=== PATIENT | male | born 1940 | race Caucasian/White ===

== ENCOUNTER → 2016-10-02 | Outpatient (CLI) | payer MEDICARE, BC ==
[2016-10-02 17:59] LABS: Blood Urea Nitrogen 23 mg/dL (9-20); Non-African American GFR(MDRD) >60 (>60 ml/min/1.73 sqM)
--- NOTE | 2016-10-02 20:30 | CT ---
EXAMINATION TYPE: CT abdomen pelvis w con DATE OF EXAM: 10/02/2016 COMPARISON: NONE HISTORY: Generalized pain for [address] DLP: 891.2 mGycm Automated exposure control for dose reduction was used. TECHNIQUE: Helical acquisition of images was performed from the lung bases through the pelvis. CONTRAST: Performed with Oral Contrast and with IV Contrast, patient injected with 100 mL of Omnipaque 300. FINDINGS: Lung bases are clear. There is no pleural effusion. There are clips from cholecystectomy. Liver spleen pancreas appear normal. Bile ducts are not dilated . There is no adrenal mass. Kidneys show satisfactory contrast opacification. There is a 1.5 cm cortica l cyst in the posterior inferior right kidney. There is a 2 cm cortical cyst on the upper pole right kidney. There is no retroperitoneal adenopathy. Abdominal aorta is atheromatous. Appendix appears nor mal. There is no ascites. Bladder distends smoothly. I see no intestinal wall thickening. There are no dil ated loops. There is multilevel spondylosis in the lumbar spine. IMPRESSION: ATHEROMATOUS AORTA. RIGHT RENAL CORTICAL CYSTS. NORMAL APPENDIX. NO SIGN OF ACUTE ABDOMEN AND PELVIS.
== END | disposition home or self-care (01) ==
LOC: RADCTMAIN 17:23
PROVIDERS: ATTEND Family Medicine
DX: N28.1 Cyst of kidney, acquired (principal)
CPT/HCPCS: 82565; 84520; 74177; 36415; Q9967

== ENCOUNTER → 2017-06-05 | Outpatient (CLI) | payer MEDICARE, BC ==
[2017-06-05 11:10] LABS: Basophils # (A) 0.1 k/uL (0-0.2); Basophils % (A) 1 %; Eosinophils # (A) 0.2 k/uL (0-0.7); Eosinophils % (A) 3 %; HCT 45.3 % (39.0-53.0); HGB 14.6 gm/dL (13.0-17.5); Lymphocytes # (A) 2.1 k/uL (1.0-4.8); Lymphocytes % (A) 28 %; MCH 27.1 pg (25.0-35.0); MCHC 32.3 g/dL (31.0-37.0); Mean Platelet Volume 6.7; Monocytes # (A) 0.5 k/uL (0-1.0); Monocytes % (A) 7 %; Neutrophils # (A) 4.4 k/uL (1.3-7.7); Neutrophils % (A) 59 %; Platelet Count 333 k/uL (150-450); RBC 5.39 m/uL (4.30-5.90); RDW 14.4 % (11.5-15.5); WBC 7.5 k/uL (3.8-10.6)
[2017-06-05 11:34] LABS: Albumin 4.4 g/dL (3.5-5.0); Calcium 9.9 mg/dL (8.4-10.2); Potassium 5.3 mmol/L (3.5-5.1); Total Bilirubin 0.5 mg/dL (0.2-1.3); Total Protein 7.3 g/dL (6.3-8.2)
[2017-06-05 15:08] LABS: Partial Thromboplastin Time 22.6 sec (22.0-30.0); Prothrombin Time 9.8 sec (9.0-12.0)
== END | disposition home or self-care (01) ==
LOC: LABWHC1 09:59
PROVIDERS: ATTEND Family Medicine
DX: E78.5 Hyperlipidemia, unspecified (principal); E11.9 Type 2 diabetes mellitus without complications; D68.9 Coagulation defect, unspecified
CPT/HCPCS: 36415; 80053; 80061; 83090; 85025; 85303; 85306; 85610; 85730

== ENCOUNTER 2017-06-29 06:43 | Day surgery (SDC) | payer MEDICARE, BC ==
[2017-06-27 14:02] VITALS: BMI 26.2
[~2017-06-29 06:43] MED LIST: LACTATED RINGERS 1,000 ML IV SCH
[2017-06-29 07:13] VITALS: TEMP 97.8
[2017-06-29] MEDS ORDERED: LACTATED RINGERS 1,000 ML IV ONE ×2 (07:20)
[2017-06-29 07:23] LABS: Glucose,Whole Blood 116 mg/dL (75-99)
[2017-06-29] MEDS ORDERED: PROPOFOL 10 MG/ML 20 ML VIAL IV ONE (07:48)
[2017-06-29] MEDS ORDERED: MIDAZOLAM 2 MG/2 ML VIAL ONE (07:48)
[2017-06-29] MEDS ORDERED: fentaNYL (PF) 50 MCG/ML 2 ML AMP ONE (07:48)
--- NOTE | 2017-06-29 07:55 | P.GSHP ---
History of Present Illness H&P Date: 06/29/17 Chief Complaint: Screening colonoscopy This is a 76-year-old male who presents today for screening colonoscopy. He denies a significant GI complaints. Past Medical History Past Medical History: Cancer, Diabetes Mellitus, Eye Disorder, Hyperlipidemia, Hypertension Additional Past Medical History / Comment(s): GLAUCOMA,. PROSTATE CANCER History of Any Multi-Drug Resistant Organisms: None Reported Past Surgical History: Cholecystectomy, Heart Catheterization, Hernia Repair, Prostate Surgery Additional Past Surgical History / Comment(s): COLONOSCOPY. LT CAROTID SX. VASECTOMY Past Anesthesia/Blood Transfusion Reactions: Postoperative Nausea & Vomiting ( PONV) Smoking Status: Former smoker - Past Family History Mother Family Medical History: Cancer Brother(s) Family Medical History: Cancer Sister(s) Family Medical History: Cancer Medications and Allergies Home Medications Medication Instructions Recorded Confirmed Type Aspirin EC [Ecotrin Low Dose] 81 mg PO DAILY 06/27/17 06/27/17 History Atenolol [Atenolol] 25 mg PO DAILY 06/27/17 06/27/17 History Brimonidine Tartrate [Alphagan P 1 drops BOTH EYES BID 06/27/17 06/27/17 History 0.2% Ophth Soln] C,E,Zinc,Copper 11/Isqxi4v/Lut 1 each PO DAILY 06/27/17 06/27/17 History [Ocuvite Adult 50 Plus Softgel] Ezetimibe [Zetia] 1 each PO DAILY 06/27/17 06/27/17 History Flaxseed Oil [[place]-3 Flaxseed Oil] 1,000 mg PO DAILY 06/27/17 06/27/17 History Glucosamine Sulfate 1 tab PO DAILY 06/27/17 06/27/17 History Multivitamins, Thera [Multivitamin 1 each PO DAILY 06/27/17 06/27/17 History (formulary)] Ramipril [Ramipril] 2.5 mg PO DAILY 06/27/17 06/27/17 History Tumeric 1 tab PO DAILY 06/27/17 History Vitamin E (Dl,Tocopheryl Acet) 400 unit PO DAILY 06/27/17 06/27/17 History [Vitamin E] glipiZIDE XL [Glucotrol Xl] 10 mg PO DAILY 06/27/17 06/27/17 History Allergies Allergy/AdvReac Type Severity Reaction Status Date / Time Hqoziwj-Ncs-Lcn Reductase AdvReac SEVERE Verified 06/27/17 13:49 Inhibitor MUSCLE CRAMPS Surgical - Exam Vital Signs Temp Pulse Resp BP Pulse Ox 97.8 F 60 18 188/65 97 06/29/17 07:12 06/29/17 07:12 06/29/17 07:12 06/29/17 07:12 06/29/17 07:12 - General well developed, no distress - Eyes PERRL - ENT normal pinna - Neck no masses - Respiratory normal expansion - Cardiovascular Rhythm: regular - Abdomen Abdomen: soft, non tender Results - Labs Abnormal Lab Results - Last 24 Hours (Table) 06/29/17 Range/Units 07:18 POC Glucose (mg/dL) 116 H (75-99) mg/dL Assessment and Plan Assessment: We will perform screening colonoscopy.
--- NOTE | 2017-06-29 08:07 | P.OP ---
Date of Procedure: 06/29/17 Preoperative Diagnosis: Screening colonoscopy Postoperative Diagnosis: Normal colonoscopy Procedure(s) Performed: Colonoscopy Anesthesia: MAC Surgeon: Jaylen Zuniga Pathology: none sent Condition: stable Disposition: PACU Description of Procedure: PROCEDURE: The patient was placed on the endoscopy table in the lateral position. Digital rectal examination was performed which revealed no abnormalities. The prostate was symmetrical without nodules. Flexible colonoscope was then placed in the patient's anus and passed throughout the entire colon. The ileocecal valve was visualized. The cecum, ascending, transverse, descending and sigmoid colon were normal. The rectum was normal as well. There were no masses, polyps or diverticula noted in the entire colon. SUMMARY OF FINDINGS: Normal colonoscopy.
[2017-06-29 08:15] VITALS: RESP 16
[2017-06-29 08:35] VITALS: BP 131/60; PULSE 64
== END 2017-06-29 08:50 | disposition home or self-care (01) ==
LOC: ORWHC2ENDO 06:43
PROVIDERS: ATTEND Surgery
DX: Z12.11 Encounter for screening for malignant neoplasm of colon (principal); E11.9 Type 2 diabetes mellitus without complications; H40.9 Unspecified glaucoma; E78.5 Hyperlipidemia, unspecified; I10 Essential (primary) hypertension; Z85.46 Personal history of malignant neoplasm of prostate; Z79.84 Long term (current) use of oral hypoglycemic drugs; Z79.82 Long term (current) use of aspirin; Z79.899 Other long term (current) drug therapy; Z87.891 Personal history of nicotine dependence; Z88.8 Allergy status to other drugs, medicaments and biological substances
CPT/HCPCS: J2250; J3010; J2704; G0121

== ENCOUNTER 2021-06-30 12:13 | Day surgery (SDC) | payer MEDICARE, BC ==
[2021-06-29 14:05] VITALS: BMI 24.7
[~2021-06-30 12:13] MED LIST changes: +ALBUTEROL NEB (CONC) 2.5 MG/0.5 ML INHALATION ONE; -LACTATED RINGERS 1,000 ML IV SCH; +LIDOCAINE 2% (PF) 20 MG/ML 5 ML VIAL INHALATION ONE; +LIDOCAINE VISCOUS 300 MG/15 ML CUP MUCOUS MEM ONE; +SODIUM CHLORIDE 0.9% 1,000 ML IV SCH
[2021-06-30 13:09] LABS: Glucose,Whole Blood 140 mg/dL (75-99)
[2021-06-30 13:13] VITALS: TEMP 97
[2021-06-30] MEDS ORDERED: LACTATED RINGERS 1,000 ML IV ONE (13:13)
--- NOTE | 2021-06-30 13:46 | CT ---
EXAMINATION TYPE: CT Chest boby Goins Protocol DATE OF EXAM: 06/30/2021 COMPARISON: 06/06/2021 HISTORY: Bronchial Navigation Unenhanced CT of the chest was performed with lung and mediastinal window settings submitted for [facility].. The lack of contrast limits evaluation of the vascular, mediastinal and parenchym al structures including the upper abdomen. LUNGS: There is right hilar mass measuring an estimated 6.3 x 6.8 x 5.4 cm with postobstructive pneum onia. Satellite nodule identified posteriorly measures 9 mm. More confluent infiltrate right lower lo be periphery MEDIASTINUM: Thoracic aorta is of normal caliber with limited evaluation given lack of contrast. Th e heart is not enlarged. There is suspected right hilar adenopathy measuring 2.9 cm. Subcarinal adeno buzz measures 2.4 cm. Precarinal adenopathy measures up to 1.7 cm. Low right paratracheal adenopathy measures 2.2 cm. High right paratracheal adenopathy measures 2 cm. 4 mm pulmonary nodule left lower lobe. Granuloma left lower lobe as well which is calcified. Groundglass infiltrate at the periphery o f the left upper lobe. Groundglass densities also noted left upper lobe as well as right upper lobe UPPER ABDOMEN: No significant abnormality is seen. OTHER: No significant other abnormality. IMPRESSION: 1. Right hilar mass with postobstructive pneumonia and a couple scattered pulmonary nodules as discu ssed. 2. Right hilar and mediastinal adenopathy.
[2021-06-30] MEDS ORDERED: NEOSTIGMINE 1 MG/ML 10 ML VIAL ONE (13:59)
[2021-06-30] MEDS ORDERED: LIDOCAINE 2% INJ 20 MG/ML (2 ML VIAL) ONE (13:59)
[2021-06-30] MEDS ORDERED: ONDANSETRON 4 MG/2 ML VIAL ONE (13:59)
[2021-06-30] MEDS ORDERED: SUCCINYLCHOLINE CHLORIDE 100 MG/5 ML SYR IV ONE (13:59)
[2021-06-30] MEDS ORDERED: ROCURONIUM 10 MG/ML (5 ML VIAL) IV ONE (13:59)
[2021-06-30] MEDS ORDERED: ePHEDrine 50 MG/ML 1 ML VIAL ONE (13:59)
[2021-06-30] MEDS ORDERED: fentaNYL (PF) 50 MCG/ML 2 ML AMP ONE (13:59)
[2021-06-30] MEDS ORDERED: GLYCOPYRROLATE 0.2 MG/ML 2 ML VIAL ONE (13:59)
[2021-06-30] MEDS ORDERED: PROPOFOL 10 MG/ML 20 ML VIAL IV ONE (13:59)
--- NOTE | 2021-06-30 15:20 | P.PCN ---
Date of Procedure: 06/30/21 Operative Findings: Initialization Date: 05/26/21 14:37 Date of Procedure: 05/26/21 Operative Findings: Operative Findings: 1 right lower lobe mass 2 Right hilar, paratracheal and subcarinal lymphadenopathy Postoperative Diagnosis: 1 right lower lobe mass 2 mediastinal lymphadenopathy Procedure(s) Performed: 1 Flexible bronchoscopy, airway inspection 2 Navigation bronchoscopy, transbronchial biopsy of a right lower lobe mass, bronchioloalveolar lavage of the right lower lobe, transbronchial brushing of the right lower lobe mass 2 Endoscopic ultrasound (EBUS) 3 Transbronchial needle aspirate of station station 7, station for 4L lymph nodes Surgeon: Isabell Morataya Director Of Extension Work #1: Oksana Calhoun Estimated Blood Loss (ml): 5 cc Pathology: TBBX of the lower lobe, transbronchial brushings of the right lower lobe mass, bronchioloalveolar lavage of the right lower lobe transbronchial needle aspirate of station 7, forearm, and 4L Condition: stable Disposition: same day Operative Findings: The patient had a preoperative computed tomography scan of the chest using the Veran protocol. The CAT scan images were reviewed. The right upper lobe opacity was identified it was mapped appropriately. The CAT scan images are uploaded into a USB and then into the [employer] Navigation tower. After obtaining the consent the patient was taken to the OR suite he was intubated and put on mechanical ventilation by anesthesia then the scope was advanced to the ET tube until the Trachea was seen and it was normal and then the esha appears normal then the scope advanced to the left main and MARGI LB1- LB3 were seen and no endobronchial lesions were seen then the scope advanced to the lingula and the LB4 and LB5 were seen and no endobronchial lesions were seen the scope retracted and advanced to the left lower lobes LB6 to LB12 were seen one by one and no endobronchial lesions, then the scope was retracted back to the esha and advanced to the Right main and RUL RB1 and RB2 and RB3 were seen one by one and there was minimal endobronchial lesions/irregularities of the level of the anterior segment of the right upper lobe were seen the scope The bronchoscope was then retracted and advanced to the BI and RML RB4 and RB5 were seen and no endobronchial lesions were seen then it was retracted and advanced to the RLL and is to be segment of the right lower lobe was obstructed with endobronchial tumor. The lateral and posterior segments were distorted and narrowed. The medial basilar segment and the anterior segment was patent. Navigational bronchoscopy was performed. The main esha and the secondary esha on the left were used as the reference points and appropriate calibration was done. Following that, using a navigation guidance , the bronchoscope was advanced to the right lower lobe posterior/lateral segment and various transbronchial biopsies of the right lower lobe opacity was done without any complications. Minimal endobronchial bleeding was encountered. A bronchial lavage (BAL) of the right lower lobe was done. A total of 80 mL of fluid was infused and 20 mL was suctioned back and this will be sent for cytology and microbial cultures. I also performed has bronchial brushings of the right lower lobe on the navigational guidance. Then EBUS was used and the lymph nodes were examined. Direct measurement of the mediastinal lymph nodes revealed station 4R lymph node measuring 20 x 14 mm in size, and a subcarinal lymph node station 7 measuring 31x29 mm in size and 4L station measuring 25 x 29 mm in size. On the EBUS guidance, transbronchial needle aspirate of the subcarinal lymph node station 7 was done with a total of 3 passes, station 4L lymph node was done with a total of 3 passes is no narrowed. I was able to pass the bronchoscope. No major bleeding and the scope was removed and taken out in total the patient was send to the floor in stable condition. The adequacy of the temporal confirmed by pathology at the bedside and the rest of the samples were sent and the cell block. The bronchoscope was removed, the patient will be extubated and then transferred to recovery. A follow-up chest x-ray will be done in recovery.
--- NOTE | 2021-06-30 15:51 | XR ---
EXAMINATION TYPE: XR chest 1V DATE OF EXAM: 06/30/2021 HISTORY: Status post bronchoscopic biopsy COMPARISON: None. TECHNIQUE: Single view of the chest is submitted. FINDINGS: Demonstrated are scattered senescent parenchymal change. No evidence for pneumothorax. Right hilar mass with right lower lobe volume loss and infiltrate noted . The heart is stable. Hilar and mediastinal structures are within normal limits. Degenerative changes are seen of the dorsal spine. IMPRESSION: 1. No evidence for pneumothorax. Right hilar mass with right lower lobe volume loss and infiltrate n oted.
[2021-06-30 15:59] VITALS: RESP 18
[2021-06-30 16:25] VITALS: BP 130/56; PULSE 80
[2021-07-01 00:30] LABS: Appearance,BF Bloody
== END 2021-06-30 16:39 | disposition home or self-care (01) ==
LOC: ORWHC2ENDO 12:13
PROVIDERS: ATTEND Internal Medicine Critical Care Medicine
DX: J18.9 Pneumonia, unspecified organism (principal)
CPT/HCPCS: 87798 ×3; 87496; 87498; 87529; 88104; 88108; 88305; 88173; 89050; 88342; 87252; 87502; 87634; 88341; 87070; 87205; 87116; 87102; 87206; 71045; 71250; 31628; 31623; 31624; 31627; 31652; J2710; J2405; J3010; J0330; J2704; J2001

== ENCOUNTER → 2021-07-06 | Outpatient (CLI) | payer MEDICARE, BC ==
[2021-07-06 14:58] LABS: HCT 36.3 % (39.6-50.0); HGB 10.8 g/dL (13.0-17.0); MCH 23.5 pg (27.0-32.0); MCHC 29.8 g/dL (32.0-37.0); MCV 79.1 fL (80.0-97.0); Mean Platelet Volume 8.8 fL (9.5-12.2); NRBC Per 100 WBC 0 /100 WBCS (0.0-0.0); Platelet Count 564 X 10*3/uL (140-440); RBC 4.59 X 10*6/uL (4.40-5.60); RDW 15.3 % (11.5-14.5); WBC 12.02 X 10*3/uL (4.50-10.00)
[2021-07-06 15:22] LABS: ALT 32 U/L (10-49); AST 31 U/L (14-35); African American GFR (CKD) 91.9 (60.0-200.0); Albumin 3.7 g/dL (3.8-4.9); Albumin/Globulin Ratio 0.95 (1.60-3.17); Alkaline Phosphatase 63 U/L (41-126); BUN/Creat Ratio 14.67 Ratio (12.00-20.00); Blood Urea Nitrogen 13.2 mg/dL (9.0-27.0); Calcium 9.4 mg/dL (8.7-10.3); Carbon Dioxide 23.5 mmol/L (20.0-27.5); Chloride 101 mmol/L (96-109); Chol/HDL Ratio 3.41 Ratio; Globulin 3.9 g/dL (1.6-3.3); Glucose 134 mg/dL (70-110); LDL Cholesterol,Calculated 50.2 mg/dL (0.0-131.0); Non-African American GFR(CKD) 79.3 (60.0-200.0); Potassium 4.3 mmol/L (3.5-5.5); Sodium 137 mmol/L (135-145); Total Protein 7.6 g/dL (6.2-8.2)
== END | disposition home or self-care (01) ==
LOC: LABWHC1 08:52
PROVIDERS: ATTEND Physician Assistant
DX: Z00.00 Encounter for general adult medical examination without abnormal findings (principal); E11.9 Type 2 diabetes mellitus without complications; E78.5 Hyperlipidemia, unspecified; J18.9 Pneumonia, unspecified organism
CPT/HCPCS: 36415; 80053; 80061; 83036; 84439; 84443; 85027

== ENCOUNTER → 2021-07-08 | Outpatient (CLI) | payer MEDICARE, BC ==
--- NOTE | 2021-07-12 05:59 | PE ---
EXAMINATION TYPE: PET CT fusion skull to thigh DATE OF EXAM: 07/08/2021 COMPARISON: NONE outside CT June 06, 2021 HISTORY: Newly diagnosed lung cancer. History of prostate cancer 2018. TECHNIQUE: Following the intravenous administration of 10.51 mCi of F-18 FDG, whole body images are performed from the skull base to the midthigh. Images are reviewed on the computer in the coronal, a xial, and sagittal planes. Reconstructed rotating images are created on independent workstation and reviewed on the computer. A localization and attenuation correction CT is performed in conjunction with the PET scan. Blood glucose level equals 118. SCAN: Initial Scan FINDINGS: SKULL BASE AND NECK: Hypermetabolic posterior right supraclavicular lymph node redemonstrated measur ing 2.1 x 1.7 cm axial image 53, Max SUV is 4.59. CHEST, MEDIASTINUM, AND HILAR REGION: Underlying emphysematous changes redemonstrated. Persistent saleem tral 7.2 x 5.9 cm right lung mass axial image 87, max SUV is 8.1. Peripheral areas of groundglass opa city and consolidation favor postobstructive atelectatic change. Abnormal hypermetabolic 3.4 x 2.2 cm subcarinal lymph node axial image 89, max SUV is 4.72. Abnormal 1.9 x 1.7 cm hypermetabolic anterior right hilar lymph node axial image 81. Abnormal adenopathy in th e AP window and paratracheal region extending towards anterior superior mediastinum, for reference is a right paratracheal 1.9 x 2.0 cm lymph node axial image 78, max SUV is 5.67. No areas of abnormal hypermetabolic uptake in the left lung or the remainder of the thorax. ABDOMEN AND PELVIS: No adrenal masses. Normal excretion. No areas of abnormal hypermetabolic uptake. OSSEOUS STRUCTURES: No areas of abnormal hypermetabolic uptake. OTHER CT: Nasal septum deviated to left of midline. Severe three-vessel coronary artery calcification is present. Cholecystectomy clips are seen. Diverticula in the sigmoid colon. Prostate suspected leopoldo gically absent. Moderate calcified plaque of the infrarenal abdominal aorta extends into branch vesse ls. Multilevel spurring in the spine. IMPRESSION: Large right hilar mass or neoplasm with adenopathy throughout the thorax as detailed abov e extending to right supraclavicular region. No distal metastatic disease is noted.
== END | disposition home or self-care (01) ==
LOC: RADPETMAIN 12:26
PROVIDERS: ATTEND Internal Medicine Critical Care Medicine
DX: C34.01 Malignant neoplasm of right main bronchus (principal); R91.8 Other nonspecific abnormal finding of lung field; Z85.46 Personal history of malignant neoplasm of prostate
CPT/HCPCS: 78815; A9552

== ENCOUNTER → 2021-07-15 | Outpatient (CLI) | payer MEDICARE, BC ==
--- NOTE | 2021-07-15 16:28 | MR ---
EXAMINATION TYPE: MR brain wo/w con DATE OF EXAM: 07/15/2021 COMPARISON: CT brain 2012. HISTORY: Lung cancer, evaluate for metastatic disease. TECHNIQUE: Multiplanar, multisequence images of the brain and brainstem is performed without and with IV contras t, utilizing 7.5 mL intravenous Gadavist . FINDINGS: Slightly suboptimal due to artifact over the inferior right frontal region of uncertain juan manuel ology for reference postcontrast axial image 36. Diffusion weighted images demonstrate no evidence of a recent infarct or other diffusion abnormality. There is mild ventricular and sulcal prominence. Th ere are a few small scattered foci of T2 hyperintensity seen throughout the white matter bilaterally. Approximately 5-10 scattered lesions are seen. Lesions are nonspecific in appearance and distributio n. Midline structures demonstrate normal morphology. The craniocervical junction appears within normal limits. Post contrast images demonstrate no abnormal enhancement. The dural venous sinuses appear pa tent. There is thin right lens suggesting prior cataract surgery. Visualized paranasal sinuses are cl ear. IMPRESSION: Normal right breast for recent infarct. No suspicious enhancing masses to suggest metasta tic disease to the brain. Mild diffuse cerebral atrophy and chronic small vessel ischemic change is n oted.
== END | disposition home or self-care (01) ==
LOC: RADMRIMAIN 15:28
PROVIDERS: ATTEND Internal Medicine Hematology & Oncology
DX: C34.90 Malignant neoplasm of unspecified part of unspecified bronchus or lung (principal); I67.82 Cerebral ischemia; G31.9 Degenerative disease of nervous system, unspecified; N64.89 Other specified disorders of breast
CPT/HCPCS: 70553; A9585

== ENCOUNTER → 2022-01-13 | Outpatient (CLI) | payer MEDICARE, BC ==
--- NOTE | 2022-01-15 08:26 | PE ---
EXAMINATION TYPE: PET CT fusion skull to thigh DATE OF EXAM: 01/13/2022 CLINICAL INDICATION:Male, 81 years old with history of lung ca; TECHNIQUE: Following the intravenous administration of 11.67 mCi of F-18 FDG, whole body images are performed from the skull base to the midthigh. Images are reviewed on the computer in the coronal, axial, and sagittal planes. Reconstructed rotating images are created on independent workstation and reviewed on the computer. A non-contrast CT is performed in conjunction with the PET scan. Glucose level 72 mg/dL COMPARISON: CT 06/30/2021, PET/CT 10/07/2021, FINDINGS: Mediastinal SUV mean is 1.4. Hepatic parenchyma SUV mean is 2.1. SKULL BASE AND NECK: No suspicious FDG activity. CHEST, MEDIASTINUM, AND HILAR REGION: * FDG activity within patchy airspace opacity in the right lung apex max SUV 0.5, previously 1.4. Si milar morphology to prior. * Right low paratracheal lymph node max SUV 2.3, previously 4.9, measuring 1.0 cm, previously 1.2 cm . * The remainder of the FDG activity within the mediastinum as below background levels. * Right pulmonary hilum FDG activity max SUV 2.0 previously 3.2 evaluation for size limited given la ck of IV contrast. * Left lower lung reticular opacities max SUV 1.4 previously 1.5. * Right lung base consolidation changes without increased FDG activity. * Right pleural effusion without pleural FDG activity identified. ABDOMEN AND PELVIS: No suspicious FDG activity. OSSEOUS STRUCTURES: Abnormal FDG activity within the right aspect of the T11 vertebral body max SUV 5 .6, without CT correlate and with a somewhat linear fashion along the inferior vertebral body a long day Schmorl's node. OTHER CT: Right aphakia. Moderate right pleural effusion associated atelectasis. Patchy consolidation in the right lung apex as described above. IMPRESSION: Overall there has been a positive response to therapy with decrease in FDG activity within the medias tinum and chest however there is a new T11 vertebral body area of abnormal FDG activity identified on today's exam. Finding is somewhat linear and along the inferior endplate favored to represent degene ration changes. Attention on follow-up imaging.
== END | disposition home or self-care (01) ==
LOC: RADPETMAIN 08:49
PROVIDERS: ATTEND Internal Medicine Hematology & Oncology
DX: C34.11 Malignant neoplasm of upper lobe, right bronchus or lung (principal)
CPT/HCPCS: 78815; A9552

== ENCOUNTER → 2022-05-05 | Outpatient (CLI) | payer MEDICARE, BC ==
--- NOTE | 2022-05-07 10:53 | PE ---
EXAMINATION TYPE: PET CT fusion skull to thigh DATE OF EXAM: 05/05/2022 CLINICAL INDICATION:Male, 81 years old with history of C34.11; TECHNIQUE: Following the intravenous administration of 10 mCi of F-18 FDG, whole body images are pe rformed from the skull base to the midthigh. Images are reviewed on the computer in the coronal, axi al, and sagittal planes. Reconstructed rotating images are created on independent workstation and re viewed on the computer. A non-contrast CT is performed in conjunction with the PET scan. Glucose le ludmila 56 mg/dL COMPARISON: CT None, PET/CT 01/13/2022, 10/07/2021, 07/08/2021, FINDINGS: Mediastinal SUV mean is 1.5. Hepatic parenchyma SUV mean is 2.1. SKULL BASE AND NECK: No suspicious FDG activity. CHEST, MEDIASTINUM, AND HILAR REGION: * No suspicious FDG activity of right supraclavicular and prevascular space lymphadenopathy as seen on 07/08/2021 * No abnormal the enlarged lymph nodes within the mediastinum with increased FDG activity. * No abnormal FDG activity within the right lower lobe and area of prior malignancy. There remains a telectasis with FDG activity at background levels max SUV 2.1. * Right upper lobe opacities measuring 9 mm with some groundglass changes is similar morphology with max SUV 1.6, previously 1.4. * Left lower lobe groundglass opacities with max SUV 1.3 ABDOMEN AND PELVIS: No suspicious FDG activity. FDG activity near the greater trochanter bursa bilate rally has resolved. OSSEOUS STRUCTURES: No suspicious FDG activity. OTHER CT: Carotid bifurcation atherosclerosis. Atherosclerosis of the arterial vasculature and case ry arteries. Trace right pleural effusion with associated atelectasis. Mild centrilobular emphysema c hanges. The heart is mildly enlarged for size. Gallbladder is surgically absent. There is no hydronep hrosis. Suspected renal sinus calcifications or vascular atherosclerosis. Appendix is normal. Scatter ed clonic diverticula are present. IMPRESSION: Positive response to therapy without evidence of abnormal FDG activity within the lymph nodes or prim nghia tumor site. There remains a right upper lobe and left lower lobe areas of somewhat ground glass o pacities are increased FDG activity. Continued surveillance is recommended with CT.
== END | disposition home or self-care (01) ==
LOC: RADPETMAIN 14:51
PROVIDERS: ATTEND Internal Medicine Critical Care Medicine
DX: C34.11 Malignant neoplasm of upper lobe, right bronchus or lung (principal); R91.8 Other nonspecific abnormal finding of lung field
CPT/HCPCS: 78815; A9552

== ENCOUNTER → 2022-06-06 | Outpatient (CLI) | payer MEDICARE, BC ==
[2022-06-06 11:05] LABS: Basophils # (A) 0.05 X 10*3/uL (0.00-0.10); Basophils % (A) 0.5 %; Eosinophils # (A) 0.25 X 10*3/uL (0.04-0.35); Eosinophils % (A) 2.7 %; HCT 36.1 % (39.6-50.0); HGB 11.3 g/dL (13.0-17.0); Immature Grans, Automated 0.5 %; Lymphocytes # (A) 1.29 X 10*3/uL (0.90-5.00); Lymphocytes % (A) 13.7 %; MCH 26.8 pg (27.0-32.0); MCHC 31.3 g/dL (32.0-37.0); MCV 85.5 fL (80.0-97.0); Mean Platelet Volume 8.6 fL (9.5-12.2); Monocytes # (A) 0.95 X 10*3/uL (0.20-1.00); Monocytes % (A) 10.1 %; NRBC Per 100 WBC 0 /100 WBCS (0.0-0.0); Neutrophils # (A) 6.82 X 10*3/uL (1.80-7.70); Neutrophils % (A) 72.5 %; Platelet Count 413 X 10*3/uL (140-440); RBC 4.22 X 10*6/uL (4.40-5.60); RDW 14.8 % (11.5-14.5); WBC 9.41 X 10*3/uL (4.50-10.00)
[2022-06-06 11:23] LABS: ALT 31 U/L (10-49); AST 23 U/L (14-35); African American GFR (CKD) 45.5 (60.0-200.0); Albumin/Globulin Ratio 1.25 (1.60-3.17); Alkaline Phosphatase 62 U/L (41-126); BUN/Creat Ratio 12.25 Ratio (12.00-20.00); Blood Urea Nitrogen 19.6 mg/dL (9.0-27.0); Calcium 8.5 mg/dL (8.7-10.3); Carbon Dioxide 26.8 mmol/L (20.0-27.5); Chloride 99 mmol/L (96-109); Globulin 2.4 g/dL (1.6-3.3); Glucose 114 mg/dL (70-110); Non-African American GFR(CKD) 39.3 (60.0-200.0); Potassium 4.8 mmol/L (3.5-5.5); Sodium 132 mmol/L (135-145); Total Protein 5.4 g/dL (6.2-8.2)
== END | disposition home or self-care (01) ==
LOC: LABWHC1 08:01
PROVIDERS: ATTEND Nurse Practitioner
DX: I10 Essential (primary) hypertension (principal); R53.83 Other fatigue
CPT/HCPCS: 36415; 80053; 84443; 85025

== ENCOUNTER → 2022-07-27 | Outpatient (CLI) | payer MEDICARE, BC ==
--- NOTE | 2022-07-27 15:50 | US ---
EXAMINATION TYPE: US venous doppler duplex UE LT DATE OF EXAM: 07/27/2022 COMPARISON: NONE CLINICAL INDICATION: Male, 81 years old with history of LLE; R22.42; edema patient on chemo pills SIDE PERFORMED: left Left Arm: Negative for DVT IMPRESSION: Grayscale, color doppler, spectral doppler imaging performed of the deep veins of the upper extremiti es. There is normal flow, compressibility and vascular waveforms.
--- NOTE | 2022-07-27 15:50 | US ---
EXAMINATION TYPE: US venous doppler duplex LE LT DATE OF EXAM: 07/27/2022 3:40 PM COMPARISON: NONE CLINICAL INDICATION: Male, 81 years old with history of LLE; R22.42; edema patient on chemo pills. SIDE PERFORMED: Left TECHNIQUE: The lower extremity deep venous system is examined utilizing real time linear array sonog kike with graded compression, doppler sonography and color-flow sonography. VESSELS IMAGED: Common Femoral Vein Deep Femoral Vein Greater Saphenous Vein * Femoral Vein Popliteal Vein Small Saphenous Vein * Proximal Calf Veins (* superficial vessels) Left Leg: Negative for DVT IMPRESSION: Grayscale, color doppler, spectral doppler imaging performed of the deep veins of the lo wer extremities. There is normal flow, compressibility, vascular waveforms.
== END | disposition home or self-care (01) ==
LOC: RADUSWWP 14:17
PROVIDERS: ATTEND Family Medicine
DX: R22.42 Localized swelling, mass and lump, left lower limb (principal)

== ENCOUNTER → 2022-09-14 | Outpatient (CLI) | payer MEDICARE, BC ==
--- NOTE | 2022-09-14 12:06 | XR ---
EXAMINATION TYPE: XR chest 2V DATE OF EXAM: 09/14/2022 11:58 AM COMPARISON: Chest radiographs from 09/01/2022 TECHNIQUE: XR chest 2V Frontal and lateral views of the chest. CLINICAL INDICATION:Male, 81 years old with history of J18.9 PNEUMONIA, UNSPECIFIED ORGANISM; FINDINGS: Lungs/Pleura: Small left and small to moderate right pleural effusions with similar bibasilar patchy airspace opacities redemonstrated. Pulmonary vascularity: Unremarkable. Heart/mediastinum: Cardiomediastinal silhouette is unremarkable. Atherosclerotic calcifications are seen in the aorta. Musculoskeletal: Multiple level degenerative disc disease changes seen throughout the spine. IMPRESSION: Small left and small to moderate right pleural effusions with similar bibasilar patchy airspace opaci ties. These opacities may represent atelectasis versus infiltrates in the appropriate clinical settin g.
== END | disposition home or self-care (01) ==
LOC: RADXRMAIN 11:39
PROVIDERS: ATTEND Family Medicine
DX: J18.9 Pneumonia, unspecified organism (principal); J90 Pleural effusion, not elsewhere classified; R91.8 Other nonspecific abnormal finding of lung field
CPT/HCPCS: 71046

== ENCOUNTER → 2022-09-30 | Outpatient (CLI) | payer MEDICARE, BC ==
--- NOTE | 2022-10-03 13:36 | PE ---
EXAMINATION TYPE: PET CT fusion skull to thigh DATE OF EXAM: 09/30/2022 COMPARISON: CT abdomen pelvis 08/27/2022 Prior PET/CT: 05/05/2022 HISTORY: Prostate cancer , left lung cancer TECHNIQUE: Following the intravenous administration of 9.22 mCi of F-18 FDG, whole body images are p erformed from the skull base to the midthigh. Images are reviewed on the computer in the coronal, ax ial, and sagittal planes. Reconstructed rotating images are created on independent workstation and r eviewed on the computer. A localization and attenuation correction CT is performed in conjunction w ith the PET scan. DLP: 455.39 mGycm SCAN: Subsequent Blood glucose: 101 mg/dL Average Mediastinum SUV: 1.52 Average Liver SUV: 2.11 FINDINGS: There appears to be some diffuse muscle activity creating artifact. NECK: There is increased activity within the tongue. This could be artifact from motion. There is in crease of uptake within the submandibular regions suspected is additional artifact. There is increase d uptake within the prevertebral space at the level of the vocal cords. This has an SUV of 2.62. Oaks stasis is not excluded. These findings were present on the previous examination although the intensit y is increased over the interval. THORAX: There is focal increased uptake within the right apex, image 54, SUV 1.42. This is intermedia te. Infectious etiology as well as neoplastic be considered within the differential. There may be a s mall lymph node with increased uptake, image 75, SUV 2.13. Metastatic lesion is not excluded. There i s some increased uptake within the right hilar region, image 85 SUV 1.47. This is intermediate. Infec tious etiology or neoplasm should be considered. ABDOMEN: Liver is heterogenous. Identification of a focus of neoplasm would be difficult. Intensity w ithin the liver is markedly increased from the comparison study. There is diffuse increased uptake wi thin the loops of bowel which can be physiologic. PELVIS: There is likely physiologic bowel activity present. Some normal ureteral activity is likely p resent. OSSEOUS STRUCTURES: No suspicious osseous uptake. LOCALIZATION CT: There is a moderate size right pleural effusion. COMPARISON: Diffuse muscular activity creating some artifact. Activity within the neck is increased although stable in distribution. There is increased intensity within the small density right apex. IMPRESSION: 1. Increased activity within the small right apical area is intermediate. Infectious etiology could b e considered. However, early metastatic lesion is suspected. 2. Prevertebral uptake is increasing in intensity. Metastasis not excluded. 3. Marked increase intensity within the liver compared to previous examination. Metastasis is not exc luded. Discrete corresponding CT abnormality over is not evident. 4. Patient's reported left cancer not identified on the current exam. 5. Mild increased uptake within mediastinal lymph nodes suspicious for early metastasis.
== END | disposition home or self-care (01) ==
LOC: RADPETMAIN 11:21
PROVIDERS: ATTEND Internal Medicine Hematology & Oncology
DX: C61 Malignant neoplasm of prostate (principal); C34.92 Malignant neoplasm of unspecified part of left bronchus or lung
CPT/HCPCS: 78815; A9552

== ENCOUNTER 2022-10-02 10:35 | Day surgery (SDC) | payer MEDICARE, BC ==
[2022-10-02 11:02] VITALS: RESP 18; TEMP 97.9
--- NOTE | 2022-10-02 12:06 | P.PCN ---
Date of Procedure: 10/02/22 Preoperative Diagnosis: Pleural effusion, left Postoperative Diagnosis: Pleural effusion, left Procedure(s) Performed: Thoracentesis, left Anesthesia: local Surgeon: Isabell Morataya Pathology: other Condition: stable Disposition: same day Operative Findings: A time out was performed and the chest x-ray was reviewed, the appropriate side was confirmed and marked. My hands were washed immediately prior to the procedure. I wore a surgical cap, mask with protective eyewear, sterile gown and sterile gloves throughout the procedure. The patient was prepped and draped in a sterile manner using chlorhexidine scrub after the appropriate level was percussed and confirmed by ultrasound. 1% lidocaine was used to anesthesize the skin, subcutaneous tissue, superior aspect of the rib periosteum and parietal pleura. A finder needle was then introduced over the superior aspect of the rib to locate the pleural fluid; 2colored fluid was aspirated at a depth of approximately 2 cm. A 10-blade scalpel was used to flako the skin at the insertion site. The [id number] needle was then introduced through the skin incision into the pleural space using negative aspiration pressure and the red colometric indicator to confirm appropriate positioning of the needle. The thoracentesis catheter was then threaded without difficulty. 1700 ml of turbid colored fluid was removed without difficulty. The catheter was then removed. No immediate complications were noted during the procedure. A post-procedure chest x-ray is pending at the time of this note. The fluid will be sent for studies. Estimated blood loss is 0cc
--- NOTE | 2022-10-02 12:28 | XR ---
EXAMINATION TYPE: XR chest 1V portable DATE OF EXAM: 10/02/2022 COMPARISON: 09/14/2022 HISTORY: Postthoracentesis TECHNIQUE: Single frontal view of the chest is obtained. FINDINGS: Bilateral consolidation and pleural effusion. Atherosclerotic change of aorta. Heart size stable. No overt failure. Arthropathy of the shoulders and hypertrophic and degenerative changes spin e. Surgical clips right upper quadrant. IMPRESSION: Stable bilateral infiltrate and pleural effusion.
[2022-10-02 14:12] VITALS: BP 121/74; PULSE 75
[2022-10-03 03:54] LABS: Glucose, BF Source Pleural fluid; Glucose, Body Fluid 123 mg/dL; LDH, Body Fluid Source Pleural fluid; T. Protein, Body Fluid Source Pleural fluid; Total Protein, Body Fluid >3600 mg/dL
[2022-10-03 04:20] LABS: Appearance,BF Cloudy (Clear)
== END 2022-10-03 08:31 | disposition home or self-care (01) ==
LOC: PROCWHC3 10:35
PROVIDERS: ATTEND Internal Medicine Critical Care Medicine
DX: J90 Pleural effusion, not elsewhere classified (principal); I10 Essential (primary) hypertension; E11.9 Type 2 diabetes mellitus without complications; E78.5 Hyperlipidemia, unspecified; Z85.46 Personal history of malignant neoplasm of prostate; Z85.118 Personal history of other malignant neoplasm of bronchus and lung; Z79.84 Long term (current) use of oral hypoglycemic drugs; Z79.82 Long term (current) use of aspirin; Z79.899 Other long term (current) drug therapy
CPT/HCPCS: 32554; 71045; 82945; 83615; 84157; 87070; 87075; 87116; 87205; 87206; 88108; 88305; 88341; 88342; 89050

== ENCOUNTER → 2023-07-30 | Outpatient (CLI) | payer MEDICARE, BC ==
--- NOTE | 2023-08-01 15:58 | MR ---
EXAMINATION TYPE: MR cervical spine wo/w con DATE OF EXAM: 07/30/2023 10:19 PM CLINICAL INDICATION:Male, 82 years old with history of C34.11; PHH, Neck pain, lung cancer. COMPARISON: None. TECHNIQUE: Multi planar, multi sequence imaging was performed utilizing: T1-weighted, T2-weighted, an d turbo inversion recovery imaging of the cervical spine. IV Contrast: 7.5 cc Gadavist (none if empty) FINDINGS: Alignment: The cervical vertebral bodies have preserved heights. Alignment is within normal limits gi obie patient positioning. Bones: Osteophytes and disc space narrowing most pronounced at the C5-C7 vertebral levels. No abnorma l postcontrast enhancement. Cord: The spinal cord is unremarkable with regards to their signal intensity and morphology. Discs: Intervertebral disc signal is maintained. C2-C3: No significant disc pathology. The spinal canal is patent. No neural foraminal stenosis. C3-C4: No significant disc pathology. The spinal canal is patent. Bilateral facet and uncovertebral joint arthropathy are present with moderate left and mild right neural foraminal stenosis. C4-C5: No significant disc pathology. The spinal canal is patent. Bilateral facet and uncovertebral joint arthropathy are present with mild left neural foraminal stenosis. The right neural foramen is p atent. C5-C6: No significant disc pathology. The spinal canal is patent. Bilateral facet and uncovertebral joint arthropathy are present with moderate to severe left and mild right neural foraminal stenosis. C6-C7: No significant disc pathology. The spinal canal is patent. No neural foraminal stenosis. C7-T1: No significant disc pathology. The spinal canal is patent. No neural foraminal stenosis. Other: None. IMPRESSION: 1. No evidence for disc herniation or significant spinal canal stenosis. No abnormal postcontrast enh ancement. 2. Multilevel disc degeneration with associated osteoarthritic changes. No foraminal stenosis worse o n the left at C5-C6 with moderate to severe and C3-C4 with moderate neural foraminal stenosis.
== END | disposition home or self-care (01) ==
LOC: RADMRIMAIN 21:15
PROVIDERS: ATTEND Internal Medicine Hematology & Oncology
DX: C34.11 Malignant neoplasm of upper lobe, right bronchus or lung (principal); M99.71 Connective tissue and disc stenosis of intervertebral foramina of cervical region; M50.322 Other cervical disc degeneration at C5-C6 level; M47.22 Other spondylosis with radiculopathy, cervical region
CPT/HCPCS: 72156; A9585

== ENCOUNTER → 2023-10-03 | Outpatient (CLI) | payer MEDICARE, BC ==
--- NOTE | 2023-10-26 14:35 | CT ---
Site ID synapse default Patient Peña Lakhani ID [id number] Age/Gender: 82Y, M Order # N/A Procedure CT Chest w Contrast Date 10/03/2023 2:12:00 PM EXAMINATION TYPE: CT chest w con CT DLP: 268.30 mGycm, Automated exposure control for dose reduction was used. DATE OF EXAM: 10/04/2023 1:34 PM COMPARISON: PET CT 09/30/2022, 05/05/2022, CT chest 06/30/2021, 06/06/2021. CLINICAL INDICATION: Male, 82 year old with history of lung cancer, follow-up. TECHNIQUE: Multiple axial images were obtained through the chest following the administration of 80 c c of Isovue 300. . Coronal and sagittal reformats reviewed. FINDINGS: LUNGS/ PLEURA: Small to moderate size right pleural effusion. No left pleural effusion. Left lower l obe 2.8 cm groundglass opacity with surrounding linear linear extensions. Stable right lower lobe amira cified granuloma. Stable right lower lobe 7 mm nodule abutting the pleura (series 4, image 55). No ne w pulmonary nodules. Small patchy reticular opacity within the medial right upper lobe. Similar small patchy reticular opacity within the right upper lobe (series 4, series 13). Minimal partial atelecta sis within the right lower lung adjacent to the pleural effusion. No new suspicious pulmonary nodules . Biapical pleural-parenchymal scarring. Post treatment changes of the right lower lobe. No pneumotho rax. AIRWAY: Patent and unremarkable.. HEART: Size within normal limits. No pericardial effusion. Moderate coronary arterial calcifications. MEDIASTINUM: No enlarged lymph nodes. A 1 cm short axis. VASCULATURE: No aortic aneurysm. Mild to moderate atherosclerotic calcification of the aorta and its branches. MUSCULOSKELETAL: No acute osseous abnormalities. No aggressive osseous lesion. Mild multilevel degene rative disc disease. SOFT TISSUES/LYMPH NODES: Bilateral gynecomastia. LOWER NECK: Subcentimeter hypodense nodules within the left thyroid lobe. UPPER ABDOMEN: Right renal 2.8 cm cyst. Postcholecystectomy changes. Periampullary duodenal diverticu lum. IMPRESSION: 1. Posttreatment changes in the right lower lobe with trace atelectasis and small to moderate right p leural effusion. Similar reticular opacities within the bilateral upper lobes today back to 2021. Add itional groundglass opacity identified within the left lower lobe. These findings are favored to repr esent infectious/inflammatory processes versus scarring. Recurrence/malignancy is not entirely exclud ed. Attention on follow-up exam. 2. No lymphadenopathy.
== END | disposition home or self-care (01) ==
LOC: RADCTMAIN 14:00
PROVIDERS: ATTEND Internal Medicine Hematology & Oncology
DX: C61 Malignant neoplasm of prostate (principal); J90 Pleural effusion, not elsewhere classified; J98.11 Atelectasis
CPT/HCPCS: 71260; 36415; Q9967

== ENCOUNTER → 2023-12-12 | Outpatient (CLI) | payer MEDICARE, BC ==
--- NOTE | 2023-12-13 21:13 | XR ---
EXAMINATION TYPE: XR lumbar spine 2 or 3V DATE OF EXAM: 12/12/2023 COMPARISON: None HISTORY: Pain in right hip low back pain TECHNIQUE: 3 view lumbar spine FINDINGS: Large bridging spurs are present right L1-2. There is some ossification with loss of the co rtical margin at the L1-2 level on the right. Additional workup with CT is recommended. There is loss of disc height L2-3. Some vacuum disc phenomenon is present. Vertebral body heights are preserved. There is loss of disc height at L5-S1. IMPRESSION: 1. Large right bridging osteophyte at L1 to. There is poor visualization of the cortex at this level . Additional workup with CT bar spine recommended. 2. 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
--- NOTE | 2023-12-13 21:15 | XR ---
EXAMINATION TYPE: XR Hip Complete RT DATE OF EXAM: 12/12/2023 COMPARISON: None HISTORY: Right hip pain lower back pain TECHNIQUE: 2 view right hip FINDINGS: Femoral head articulates with the acetabulum. Joint space is preserved. No acute fracture o r dislocation evident. Vascular calcifications are noted. Follow up exams can be performed as clinica lly indicated. IMPRESSION: 1. No acute osseous abnormality right hip [facility], Workstation: [email or web address], 12/13/2023 9:13 PM
== END | disposition home or self-care (01) ==
LOC: RADXRMAIN 13:50
PROVIDERS: ATTEND Internal Medicine Critical Care Medicine
CPT/HCPCS: 72100; 73502

== ENCOUNTER → 2024-02-28 | Outpatient (CLI) | payer MEDICARE, BC ==
[2024-02-28 13:23] LABS: African American GFR (CKD) 28 (>60 ml/min/1.73 sqM); Blood Urea Nitrogen 40 mg/dL (9-20); Non-African American GFR(CKD) 24 (>60 ml/min/1.73 sqM)
--- NOTE | 2024-02-28 15:22 | US ---
EXAMINATION TYPE: US thyroid st tissue head/neck DATE OF EXAM: 02/28/2024 COMPARISON: CT 2023 CLINICAL INDICATION: Male, 83 years old with history of C3411 CARCINOMA OF LUNG-UPPER LOBE; Left thyr oid nodule seen on recent CT TECHNIQUE: Grayscale and color Doppler imaging of the thyroid gland. FINDINGS: GLAND SIZE: Right Lobe: 3.2 x 1.5 x 1.4 cm Overall Parenchyma: heterogeneous Left Lobe: 3.8 x 1.5 x 1.5 cm Overall Parenchyma: heterogeneous Isthmus Thickness: 0.3 cm NODULES RIGHT: # of nodules measured on right: 0 LEFT: # of nodules measured on left: 1 1. 2.0 X 1.2 x 1.7 cm, mid, solid or almost completely solid, isoechoic nodule, which is wider than tall, with ill-defined margins, without echogenic foci. Prior size: prior CT ISTHMUS: # of nodules measured in the isthmus: 0 Bilateral neck scanned, no evidence of lymphadenopathy. IMPRESSION: Mildly suspicious nodule mid to inferior pole left lobe thyroid. Follow-up exam in one year recommend ed 2017 ACR TI-RADS LEVEL: TR-RADS 4 - Moderately Suspicious: Follow if > 1 cm, FNA if > 1.5 cm *Highest TI-RADS level nodule reported [email or web address] [facility], , 02/28/2024 3:20 PM
--- NOTE | 2024-02-28 15:52 | CT ---
EXAMINATION TYPE: CT ChestAbdPelvis wo con DATE OF EXAM: 02/28/2024 COMPARISON: CT chest dated 10/03/[address] abdomen and pelvis dated 08/27/2022 CLINICAL INDICATION: Male, 83 years old with history of C34.11 lung ca; PHH, lung ca TECHNIQUE: CT scan of the thorax, abdomen and pelvis is performed without IV contrast. CT DLP: 502.[address] CTDI: mGy Automated exposure control for dose reduction was used. FINDINGS: CT chest: There are new right lung nodules compared to the prior study including a 13 mm nodule in the right meghna ng base anteriorly and a 9.6 mm nodule in the right upper lobe. There is a stable somewhat spiculated 14 mm nodule in the right lung apex there is an increasing large right pleural effusion. There is a small area of lung consolidation adjacent to the effusion likely compressive atelectasis. There is a stable 27 mm partially consolidative density in the left lower lobe. There is a new small left pleural effusion. The great vessels the chest are normal and is no definite mediastinal, hilar or axillary adenopathy. The heart size is normal. No focal osseous lesions are seen. CT abdomen and pelvis: There is surgical absence of the gallbladder.. There is no biliary ductal dilatation. There is no organomegaly involving the liver, pancreas, spleen or adrenal glands.. There is no solid renal mass or hydronephrosis. There is no retroperitoneal adenopathy or hemorrhage in the caliber of the abdominal aorta is normal. The bowel loops are normal in caliber and there is no dilatation or obstruction. No inflammatory car ges identified in the bowel wall and mesentery. There is no free intracranial air or fluid. There is no pelvic mass or adenopathy. There is no free fluid within the pelvis. There is surgical absence of the prostate gland. No focal osseous lesions are seen. Soft tissue the abdomen and pelvis are normal. IMPRESSION: 1. Findings suspicious for recurrent lung cancer with new right lung nodules, increasing large right pleural effusion and new small left pleural effusion as described above. 2. No evidence of metastatic disease to the abdomen or pelvis. [facility], , 02/28/2024 3:50 PM
== END | disposition home or self-care (01) ==
LOC: RADCTMAIN 12:30
PROVIDERS: ATTEND Internal Medicine Hematology & Oncology
DX: C34.11 Malignant neoplasm of upper lobe, right bronchus or lung (principal); C61 Malignant neoplasm of prostate
CPT/HCPCS: 36415; 71250; 74176; 76536; 82565; 84520

== ENCOUNTER → 2024-03-03 | Outpatient (CLI) | payer MEDICARE, BC ==
--- NOTE | 2024-03-04 19:25 | MR ---
EXAMINATION TYPE: MR brain wo/w con DATE OF EXAM: 03/03/2024 5:59 PM COMPARISON: 07/15/2021. CLINICAL INDICATION: Male, 83 years old with history of C34.11; Malignant neoplasm of upper lobe, rig ht bronchus or lung TECHNIQUE: Multi planar, multi sequence imaging was performed through the brain including: T1, T2, In version recovery, susceptibility weighted imaging and gradient echo imaging and Diffusion weighted im aging. The patient was then given intravenous contrast and multi planar, T1 fat-saturation images wer e obtained. IV Contrast: 5 mL Gadobutrol FINDINGS: Mild cerebral atrophy with proportional dilation of ventricular system. Diffusion-weighted imaging s hows no evidence of restricted diffusion to suggest acute/subacute infarct. Intracranial arterial romain w voids are maintained. Midline structures show no abnormality. Scattered foci of high T2 signal inte nsity are seen within the periventricular white matter. The susceptibility weighted images do not rev eal any evidence for micro-hemorrhage. After administration of gadolinium, no abnormal enhancement is seen. The bone marrow signal is within normal limits. Paranasal sinuses and mastoid air cells: No significant paranasal sinus disease. Visualized orbits: Bilateral aphakia IMPRESSION: 1. No evidence of intracranial mass, acute/subacute infarct, or abnormal enhancement. 2. Nonspecific white matter changes, likely related to small vessel ischemic disease. [facility], , 03/04/2024 7:22 PM
== END | disposition home or self-care (01) ==
LOC: RADMRIMAIN 17:09
PROVIDERS: ATTEND Internal Medicine Hematology & Oncology
DX: C34.11 Malignant neoplasm of upper lobe, right bronchus or lung (principal); R90.82 White matter disease, unspecified; H27.03 Aphakia, bilateral
CPT/HCPCS: 70553; A9585

== ENCOUNTER → 2024-03-10 | Outpatient (CLI) | payer MEDICARE, BC ==
--- NOTE | 2024-03-10 16:14 | XR ---
EXAMINATION TYPE: XR ankle complete RT DATE OF EXAM: 03/10/2024 4:01 PM COMPARISON: None. CLINICAL INDICATION: Male, 83 years old with history of S99.91 RIGHT ANKLE INJURY, pain, injury TECHNIQUE: 3 view(s) obtained. FINDINGS: Ankle mortise is intact. Plantar calcaneal heel spur is present. Tiny Achilles tendon calcaneal heel spurs present. No acute fractures or dislocations evident. Ankle mortise appears intact. Mild diffuse soft tissue sw elling may be present. Follow up exams can be performed 7-10 days from acute trauma for continued pain. IMPRESSION: 1. No acute osseous abnormality radiographically apparent. 2. There may be some mild diffuse soft tissue swelling present at the ankle. [facility], , 03/10/2024 4:11 PM
== END | disposition home or self-care (01) ==
LOC: RADXRMAIN 15:47
PROVIDERS: ATTEND Family Medicine
DX: S99.911A Unspecified injury of right ankle, initial encounter (principal)

== ENCOUNTER 2024-03-21 12:51 | Inpatient (IN) | payer MEDICARE, BC ==
--- NOTE | 2024-03-21 13:32 | ED ---
SOB HPI - General Source: patient, family, RN notes reviewed Mode of arrival: wheelchair Limitations: no limitations - History of Present Illness MD Complaint: shortness of breath <Mason Henderson - Last Filed: 03/21/24 13:28> <Cesar Dupont - Last Filed: 03/21/24 18:38> - General Chief Complaint: Shortness of Breath Stated Complaint: SOB Time Seen by Provider: 03/21/24 13:02 - History of Present Illness Initial Comments: Quick note: This is an 83-year-old male with history of CAD, lungs CA, cardiac catheterization DM presenting with dyspnea x 2-3 weeks. Patient endorses increased DESAI chest discomfort, endorsing use of home O2 which he does not normally use. Endorses associated dyspnea, feeling "winded", wheezing and chest discomfort/tightness. Denies fever, chills, radiating pain, diaphoresis, dizziness, hemoptysis, dyspnea when supine. Also mentions RLE cellulitis x 2 weeks, not improving with p.o. Keflex and prednisone. Patient states he sees Dr. Morataya and Dr. Rodriges who advised to go to hospital for direct admission. (Mason Henderson) Dictation was produced using [employer] dictation software. please excuse any grammatical, word or spelling errors. Chief Complaint: 83-year-old male with history of lung cancer presents to the ER for direct admission History of Present Illness: Patient is a 83-year-old male presents emergency department after being instructed to come to the ER after speaking with oncologist Dr. Jennings along with pre wave assembler Dr. Morataya. Last couple weeks has been antibiotics for treatment of exertional dyspnea along with worsening cough. He has been on antibiotics however there was concern that perhaps antibiotics he was on was not quite strong enough to treat his condition along with his list of comorbidities. The ROS documented in this emergency department record has been reviewed and confirmed by me. Those systems with pertinent positive or negative responses have been documented in the HPI. All other systems are other negative and/or noncontributory. (Cesar Dupont) - Related Data Home Medications Medication Instructions Recorded Confirmed Brimonidine Tartrate [Alphagan P 1 drops BOTH EYES BID 06/27/17 10/06/22 0.2% Ophth Soln] C,E,Zinc,Copper 11/Iodmh0r/Lut 1 tab PO DAILY 06/27/17 10/06/22 [Ocuvite Adult 50 Plus Softgel] Ezetimibe [Zetia] 10 mg PO DAILY 06/27/17 10/06/22 Vitamin E (Dl,Tocopheryl Acet) 400 unit PO DAILY 06/27/17 10/06/22 [Vitamin E (400 Iu = 180 mg)] atenoloL 12.5 mg PO DAILY 06/27/17 10/06/22 flaxseed oiL [[place]-3 Flaxseed Oil] 1,000 mg PO HS 06/27/17 10/06/22 glipiZIDE XL [Glucotrol XL] 10 mg PO DAILY 06/27/17 10/06/22 Donepezil HCl [Aricept] 10 mg PO HS 06/29/21 10/06/22 Eylea 1 dose INJ Q28D 06/29/21 10/06/22 Rosuvastatin Calcium 10 mg PO DAILY 06/29/21 10/06/22 Fluticasone/Umeclidin/Vilanter 1 puff INHALATION RT-DAILY 08/26/22 10/06/22 [Trelegy Ellipta 100-62.5-25] Glucosam/J Carlos-Msm1/C/Gerard/Bosw 1 tab PO DAILY 08/26/22 10/06/22 [Glucosamine-Chondroitin Tablet] Ondansetron [Zofran] 4 mg PO QID PRN 08/26/22 10/06/22 Sennosides [Senokot] 17.2 mg PO BID 08/26/22 10/06/22 Turmeric Root Extract [Turmeric 500 mg PO HS 08/26/22 10/06/22 Curcumin] Previous Rx's Medication Instructions Recorded Fluconazole [Diflucan] 100 mg PO DAILY #3 tablet 09/04/22 Allergies Allergy/AdvReac Type Severity Reaction Status Date / Time No Known Allergies Allergy Verified 10/06/22 11:48 Review of Systems ROS Other: All systems not noted in ROS Statement are negative. <Mason Henderson - Last Filed: 03/21/24 13:28> ROS Other: All systems not noted in ROS Statement are negative. <Cesar Dupont - Last Filed: 03/21/24 18:38> ROS Statement: Those systems with pertinent positive or pertinent negative responses have been documented in the HPI. Past Medical History Past Medical History: Cancer, Diabetes Mellitus, Eye Disorder, Hearing Disorder / Deafness, Hyperlipidemia, Hypertension, Osteoarthritis (OA), Pneumonia Additional Past Medical History / Comment(s): Hard of hearing, GLAUCOMA, HX PROSTATE CANCER 2010. Lung Cancer 2021 History of Any Multi-Drug Resistant Organisms: None Reported Past Surgical History: Cholecystectomy, Heart Catheterization, Hernia Repair, Prostate Surgery Additional Past Surgical History / Comment(s): COLONOSCOPY, LEFT CAROTID SURGERY, VASECTOMY, facial moles removed. Past Anesthesia/Blood Transfusion Reactions: Postoperative Nausea & Vomiting (PONV) Additional Past Anesthesia/Blood Transfusion Reaction / Comment(s): PONV after hernia surgery only. Past Psychological History: No Psychological Hx Reported Smoking Status: Current some day smoker, Former smoker Past Alcohol Use History: None Reported Past Drug Use History: None Reported - Past Family History Mother Family Medical History: Cancer Brother(s) Family Medical History: Cancer Sister(s) Family Medical History: Cancer <Mason Henderson - Last Filed: 03/21/24 13:28> General Exam Limitations: no limitations <Mason Henderson - Last Filed: 03/21/24 13:28> <Cesar Dupont - Last Filed: 03/21/24 18:38> - General Exam Comments Initial Comments: Visual Physical Exam Vital signs reviewed General: Well-appearing, nontoxic, no acute distress. Head: Normocephalic, atraumatic Eyes: PERRLA, EOMI ENT: Airway patent Chest: Nonlabored breathing Skin: No visual rash, normal skin tone Neuro: Alert and oriented 3 Musculoskeletal: No gross abnormalities (Mason Henderson) Patient was seen and evaluated in the waiting room. He did consent to being evaluated PHYSICAL EXAM: General Impression: Alert and oriented x3, not in acute distress HEENT: Normocephalic atraumatic, extra-ocular movements intact, pupils equal and reactive to light bilaterally, mucous membranes moist. Cardiovascular: Heart regular rate and rhythm Chest: Able to complete full sentences, no retractions, no tachypnea Abdomen: abdomen soft, non-tender, non-distended, no organomegaly Musculoskeletal: Pulses present and equal in all extremities, no peripheral edema Motor: no focal deficits noted Neurological: CN II-XII grossly intact, no focal motor or sensory deficits noted Skin: Intact with no visualized rashes, right lower extremity dressing clean dry and intact Psych: Normal affect and mood (Cesar Dupont) Course Vital Signs 03/21/24 03/21/24 13:04 17:18 Temperature 98.0 F 97.7 F Pulse Rate 68 63 Respiratory 18 Rate Blood Pressure 121/74 129/55 O2 Sat by Pulse 96 97 Oximetry Medical Decision Making <Mason Henderson - Last Filed: 03/21/24 13:28> - Lab Data Result diagrams: 03/21/24 13:49 03/21/24 13:49 <Cesar Dupont - Last Filed: 03/21/24 18:38> - Medical Decision Making I completed the quick note portion of this chart signed ANURAG Vernon (Mason Henderson) Was pt. sent in by a medical professional or institution (ADRIENNE Amaya, DIRECTOR PACKAGING, urgent care, hospital, or half-way...) When possible be specific @ -Sent in by oncology and pulmonology Did you speak to anyone other than the patient for history (EMS, parent, family, police, friend...)? What history was obtained from this source @ -No Did you review nursing and triage notes (agree or disagree)? Why? @ -I reviewed and agree with nursing and triage notes Were old charts reviewed (outside hosp., previous admission, EMS record, old EKG, old radiological studies, urgent care reports/EKG's, half-way records)? Report findings @ -No old charts were reviewed Differential Diagnosis (chest pain, altered mental status, abdominal pain women, abdominal pain men, vaginal bleeding, musculoskeletal, weakness, fever, dyspnea, syncope, headache, dizziness, GI bleed, back pain, seizure, CVA, palpatations, mental health)? @ -Differential Dyspnea: Coronary syndrome, arrhythmia, tamponade, asthma, COPD, pulmonary embolism, pneumonia, pneumothorax, pulmonary effusion, anaphylaxis, diabetic ketoacidosis, flailed chest, pulmonary contusion, diaphragmatic rupture, anemia, neuromuscular, this is not meant to be an all-inclusive list. EKG interpreted by me (3pts min.). @ -My EKG interpretation: Ventricular rate 64, sinus rhythm, right bundle branch block,. 166, QRS 122, QTc 422. No TN prolongation, no QTC prolongation, no ST or T-wave changes noted. EKG compared to 2022 showing no changes. Overall, this EKG is unremarkable X-rays interpreted by me (1pt min.). @ -Chest x-ray shows pulmonary edema versus possible pneumonia CT interpreted by me (1pt min.). @ -None done U/S interpreted by me (1pt. min.). @ -None done What testing was considered but not performed or refused? (CT, X-rays, U/S, labs)? Why? @ -None What meds were considered but not given or refused? Why? @ -None Was smoking cessation discussed for >3mins.? @ -No Were there social determinants of health that impacted care today? How? (Homelessness, low income, unemployed, alcoholism, drug addiction, transportation, low edu. Level, literacy, decrease access to med. care, retirement, rehab)? @ -No Was there de-escalation of care discussed even if they declined (Discuss DNR or withdrawal of care, Hospice)? DNR status @ -No What co-morbidities impacted this encounter? (DM, HTN, Smoking, COPD, CAD, Cancer, CVA, ARF, Chemo, Hep., AIDS, mental health diagnosis, sleep apnea, morbid obesity)? @ -Lung cancer Was patient admitted / discharged? Hospital course, mention meds given and route, prescriptions, significant lab abnormalities, going to OR and other p ertinent info. @ -83-year-old male with multiple comorbidities including lung cancer presents to the emergency department for hospital admission. He was directed to the hospital by pre wave assembler and oncologist. He has been feeling outpatient treatment still continues to be dyspneic on exertion. He is well-appearing at the bedside at rest. Vital signs are stable upon arrival. EKG shows no acute findings. Laboratory evaluation obtained. Leukocytosis 23.3 unclear if it secondary to recent steroid use or pneumonia or infectious process. Coag panel is unremarkable. Metabolic panel otherwise within acceptable limits. Troponin negative. Brain nitric peptide is elevated. Chest x-ray shows heart failure versus pneumonia or both. Patient treated with Lasix and antibiotics. Did you discuss the management of the patient with other professionals (professionals i.e. , PA, DIRECTOR PACKAGING, lab, RT, psych nurse, social services designee, radius grinder, teacher, ship's electronic warfare officer, case investigator)? Give summary @ -Case discussed with hospitalist for admission Was critical care preformed (if so, how long)? @ -No Undiagnosed new problem with uncertain prognosis? @ -No Drug Therapy requiring intensive monitoring for toxicity (Heparin, Nitro, Insulin, Cardizem)? @ -No Were any procedures done? @ -No Diagnosis/symptom? Acute, or Chronic, or Acute on Chronic? Uncomplicated (without systemic symptoms) or Complicated (systemic symptoms)? @ -Dyspnea failed outpatient treatment Side effects of treatment? @ -No Exacerbation, Progression, or Severe Exacerbation? @ -No Poses a threat to life or bodily function? How? (Chest pain, USA, MD, pneumonia, PE, COPD, DKA, ARF, appy, cholecystitis, CVA, Diverticulitis, Homicidal, Suicidal, threat to staff... and all critical care pts) @ -yes (Cesar Dupont) - Lab Data Lab Results 03/21/24 03/21/24 03/21/24 Range/Units 13:49 13:49 13:49 WBC 23.3 H (3.8-10.6) k/uL RBC 4.01 L (4.30-5.90) m/uL Hgb 10.5 L (13.0-17.5) gm/dL Hct 34.4 L (39.0-53.0) % MCV 85.8 (80.0-100.0) fL MCH 26.1 (25.0-35.0) pg MCHC 30.4 L (31.0-37.0) g/dL RDW 15.0 (11.5-15.5) % Plt Count 671 H (150-450) k/uL MPV 6.6 Neutrophils % 94 % Lymphocytes % 3 % Monocytes % 3 % Eosinophils % 0 % Basophils % 0 % Neutrophils # 21.9 H (1.3-7.7) k/uL Lymphocytes # 0.6 L (1.0-4.8) k/uL Monocytes # 0.6 (0-1.0) k/uL Eosinophils # 0.1 (0-0.7) k/uL Basophils # 0.0 (0-0.2) k/uL Hypochromasia Slight PT 10.4 (10.0-12.5) sec INR 0.9 (<1.2) APTT 24.5 (22.0-30.0) sec Sodium 133 L (137-145) mmol/L Potassium 4.8 (3.5-5.1) mmol/L Chloride 98 (98-107) mmol/L Carbon Dioxide 30 (22-30) mmol/L Anion Gap 5 mmol/L BUN 40 H (9-20) mg/dL Creatinine 1.53 H (0.66-1.25) mg/dL Est GFR (CKD-EPI)AfAm 47 (>60 ml/min/1.73 sqM) Est GFR (CKD-EPI)NonAf 41 (>60 ml/min/1.73 sqM) Glucose 174 H (74-99) mg/dL Plasma Lactic Acid Atif (0.7-2.0) mmol/L Calcium 8.4 (8.4-10.2) mg/dL Magnesium 2.7 H (1.6-2.3) mg/dL Total Bilirubin 0.4 (0.2-1.3) mg/dL AST 30 (17-59) U/L ALT 52 H (4-49) U/L Alkaline Phosphatase 79 (38-126) U/L Troponin I (0.000-0.034) ng/mL NT-Pro-B Natriuret Pep 1500 pg/mL Total Protein 5.6 L (6.3-8.2) g/dL Albumin 2.6 L (3.5-5.0) g/dL 03/21/24 03/21/24 Range/Units 13:49 13:49 WBC (3.8-10.6) k/uL RBC (4.30-5.90) m/uL Hgb (13.0-17.5) gm/dL Hct (39.0-53.0) % MCV (80.0-100.0) fL MCH (25.0-35.0) pg MCHC (31.0-37.0) g/dL RDW (11.5-15.5) % Plt Count (150-450) k/uL MPV Neutrophils % % Lymphocytes % % Monocytes % % Eosinophils % % Basophils % % Neutrophils # (1.3-7.7) k/uL Lymphocytes # (1.0-4.8) k/uL Monocytes # (0-1.0) k/uL Eosinophils # (0-0.7) k/uL Basophils # (0-0.2) k/uL Hypochromasia PT (10.0-12.5) sec INR (<1.2) APTT (22.0-30.0) sec Sodium (137-145) mmol/L Potassium (3.5-5.1) mmol/L Chloride (98-107) mmol/L Carbon Dioxide (22-30) mmol/L Anion Gap mmol/L BUN (9-20) mg/dL Creatinine (0.66-1.25) mg/dL Est GFR (CKD-EPI)AfAm (>60 ml/min/1.73 sqM) Est GFR (CKD-EPI)NonAf (>60 ml/min/1.73 sqM) Glucose (74-99) mg/dL Plasma Lactic Acid Atif 1.5 (0.7-2.0) mmol/L Calcium (8.4-10.2) mg/dL Magnesium (1.6-2.3) mg/dL Total Bilirubin (0.2-1.3) mg/dL AST (17-59) U/L ALT (4-49) U/L Alkaline Phosphatase (38-126) U/L Troponin I <0.012 (0.000-0.034) ng/mL NT-Pro-B Natriuret Pep pg/mL Total Protein (6.3-8.2) g/dL Albumin (3.5-5.0) g/dL Disposition <Mason Henderson - Last Filed: 03/21/24 13:28> Decision Time: 18:38 <Cesar Dupont - Last Filed: 03/21/24 18:38> Clinical Impression: Dyspnea Disposition: ADMITTED IP TO THIS HOSP Condition: Fair Referrals: Olman Matos DO [Primary Care Provider] - 1-2 days
[2024-03-21 14:18] LABS: Basophils % (A) 0 %; Eosinophils # (A) 0.1 k/uL (0-0.7); Eosinophils % (A) 0 %; HCT 34.4 % (39.0-53.0); HGB 10.5 gm/dL (13.0-17.5); Hypochromasia Slight; Lymphocytes # (A) 0.6 k/uL (1.0-4.8); Lymphocytes % (A) 3 %; MCH 26.1 pg (25.0-35.0); MCHC 30.4 g/dL (31.0-37.0); MCV 85.8 fL (80.0-100.0); Mean Platelet Volume 6.6; Monocytes # (A) 0.6 k/uL (0-1.0); Monocytes % (A) 3 %; Neutrophils # (A) 21.9 k/uL (1.3-7.7); Neutrophils % (A) 94 %; Platelet Count 671 k/uL (150-450); RBC 4.01 m/uL (4.30-5.90); WBC 23.3 k/uL (3.8-10.6)
[2024-03-21 14:27] LABS: INR 0.9 (<1.2); Partial Thromboplastin Time 24.5 sec (22.0-30.0); Prothrombin Time 10.4 sec (10.0-12.5)
[2024-03-21 14:35] LABS: ALT 52 U/L (4-49); AST 30 U/L (17-59); African American GFR (CKD) 47 (>60 ml/min/1.73 sqM); Albumin 2.6 g/dL (3.5-5.0); Alkaline Phosphatase 79 U/L (38-126); Anion Gap 5 mmol/L; Blood Urea Nitrogen 40 mg/dL (9-20); Calcium 8.4 mg/dL (8.4-10.2); Carbon Dioxide 30 mmol/L (22-30); Chloride 98 mmol/L (98-107); Glucose 174 mg/dL (74-99); Magnesium 2.7 mg/dL (1.6-2.3); Non-African American GFR(CKD) 41 (>60 ml/min/1.73 sqM); Potassium 4.8 mmol/L (3.5-5.1); Sodium 133 mmol/L (137-145); Total Bilirubin 0.4 mg/dL (0.2-1.3); Total Protein 5.6 g/dL (6.3-8.2)
[2024-03-21 14:43] LABS: NT-Pro-B-Type Natriuretic Pept 1500 pg/mL
--- NOTE | 2024-03-21 14:47 | XR ---
EXAMINATION TYPE: XR chest 2V DATE OF EXAM: 03/21/2024 2:41 PM COMPARISON: Chest radiographs from 12/13/2023, CT chest abdomen pelvis 02/28/2024 TECHNIQUE: XR chest 2V Frontal and lateral views of the chest. CLINICAL INDICATION:Male, 83 years old with history of difficulty breathing; FINDINGS: Lungs/Pleura: No evidence of pneumothorax. Bibasilar patchy opacities. Blunting of the costophrenic a ngles is present. Pulmonary vascularity: Pulmonary vascular congestion. Heart/mediastinum: Cardiomediastinal silhouette is enlarged and stable. Atherosclerotic calcificatio ns are seen in the aorta. Musculoskeletal: No acute osseous pathology. IMPRESSION: Cardiomegaly, pulmonary vascular congestion and bilateral small pleural effusions with atelectasis. C orrelate with BNP for congestive heart failure. Superimposed infectious process is not excluded. [facility], , 03/21/2024 2:45 PM
[2024-03-21] MEDS ORDERED: VANCOMYCIN IV PER PHARMACY 1 EACH MISC MISCELLANE PRN (16:13)
[2024-03-21] MEDS ORDERED: NALOXONE 0.4 MG/ML 1 ML VIAL IV PRN (18:35)
[2024-03-21] MEDS: FUROSEMIDE 10 MG/ML 4 ML VIAL IV STA (18:40)
[2024-03-21] MEDS: PIPERACILLIN-TAZOBACTAM 3.375 GM in SODIUM CHLORIDE 0.9% 100 ML IVPB SCH (18:40)
[2024-03-21] MEDS: SODIUM CHLORIDE 0.9% 1,000 ML IV SCH (19:01)
[2024-03-21] MEDS: VANCOMYCIN 1,500 MG in SODIUM CHLORIDE 0.9% 500 ML 500 ML IVPB ONE (19:21)
[2024-03-21 20:18] LABS: Influenza A Not Detected (Not Detectd); Influenza B Not Detected (Not Detectd); RSV Not Detected (Not Detectd)
[2024-03-21 23:19] LABS: Glucose,Whole Blood 205 mg/dL (70-110)
[2024-03-21] MEDS: IBUPROFEN 400 MG TAB PO PRN (23:42)
[2024-03-22 07:23] LABS: African American GFR (CKD) 38 (>60 ml/min/1.73 sqM); Non-African American GFR(CKD) 33 (>60 ml/min/1.73 sqM)
[2024-03-22 07:34] LABS: Glucose,Whole Blood 100 mg/dL (70-110)
[2024-03-22] MEDS: INSULIN ASPART (NovoLOG) 100 UNIT/ML VIAL SQ SCH (07:47)
--- NOTE | 2024-03-22 08:55 | US ---
EXAMINATION TYPE: US chest DATE OF EXAM: 03/22/2024 COMPARISON: XR 03/21/24 CLINICAL INDICATION: Male, 83 years old with history of Markings for thoracentesis by pulmonary staff ; TECHNIQUE: Grayscale imaging of the chest. Targeted ultrasound of the posterior lower Bilateral ian thoraces FINDINGS: EXAM MEASUREMENTS: Right Pleural Effusion pocket size: 11.5 cm Right skin surface to fluid distance: 2.8 cm Left Pleural Effusion pocket size: 10.0 cm Left skin surface to fluid distance: 2.3 cm Right side marked for possible thoracentesis outside the dept. Left side marked for possible thoracentesis outside the dept. Pulmonologists are able to review the images in the patient?s EMR. IMPRESSIONS: Large bilateral pleural effusions marked for possible thoracentesis. [facility], Workstation: NEVIN 03/22/2024 8:53 AM
--- NOTE | 2024-03-22 10:03 | XR ---
EXAMINATION TYPE: XR chest 1V DATE OF EXAM: 03/22/2024 COMPARISON: 12/12/2023 CLINICAL INDICATION: Male, 83 years old with history of Post right thoracentesis; TECHNIQUE: Single frontal view of the chest is obtained. FINDINGS: There are small bilateral pleural effusions. There is no pneumothorax. The heart and pulmonary vasculature are normal. The osseous structures are intact. IMPRESSION: Small bilateral pleural effusions with no pneumothorax. [facility], , 03/22/2024 10:01 AM
[2024-03-22 10:58] LABS: Total Protein 4.7 g/dL (6.3-8.2)
--- NOTE | 2024-03-22 11:43 | P.CNPUL ---
History of Present Illness Consult date: 03/22/24 Requesting physician: Cesar Dupont Reason for consult: dyspnea, pleural effusion, abnormal CXR/CT Chief complaint: Shortness of breath, dyspnea on exertion History of present illness: This is a very pleasant 83-year-old male patient with a known history of kidney disease, chronic obstructive pulmonary disease, adenocarcinoma of the lung diagnosed in June 2021 and is currently on Tabrecta. Previous history of recurrent bilateral pleural effusions however his last bilateral thoracentesis w as back in September 2022. Negative for malignancy x 2. He had been doing well since that time until recently he had developed increasing shortness of breath and dyspnea on minimal exertion. He presented here to the emergency room for the same yesterday. Chest x-ray did show significant bilateral pleural effusions. White count 23.3. Hemoglobin 10.5. Platelets 671. INR 0.9. Sodium 133. Potassium 4.8. Bicarb 30. BUN 40. Creatinine 1.53. Glucose 174. proBNP 1500. Procalcitonin 0.08. Viral screen negative. He is seen today in consultation on the regular medical floor. He is currently sitting up in bed. Awake and alert in no acute distress. Maintaining O2 saturations in the 90s on 2 L/min per nasal cannula. He had been initiated on vancomycin and Zosyn. He did undergo a right sided thoracentesis today with Dr. Olivas. 1.5 L of cloudy, yellow, milky fluid returned. Fluid analysis and cytology are pending. Review of Systems REVIEW OF SYSTEMS: CONSTITUTIONAL: Denies any recent significant weight loss or weight gain. EYES: Denies change in vision. EARS, NOSE, MOUTH, THROAT: Denies headaches, denies sore throat. CARDIOVASCULAR: Denies chest pain, palpitations or syncopal episodes. RESPIRATORY: Positive for shortness of breath, no cough, congestion or hemoptysis. GASTROINTESTINAL: Denies change in appetite, denies abdominal pain GENITOURINARY: Denies hematuria, denies infections. MUSKULOSKELETAL: Denies pain, denies swelling. INTEGUMENTARY: Denies rash, denies eczema. NEUROLOGICAL: Denies recent memory loss, no recent seizure activity. PSYCHIATRIC: Denies anxiety, denies depression. HEMATOLOGIC/LYMPHATIC: Denies anemia, denies enlarged lymph nodes. Past Medical History Past Medical History: Cancer, Diabetes Mellitus, Eye Disorder, Hearing Disorder / Deafness, Hyperlipidemia, Osteoarthritis (OA), Pneumonia Additional Past Medical History / Comment(s): Hard of hearing, , HX PROSTATE CANCER 2010. Lung Cancer 2021 History of Any Multi-Drug Resistant Organisms: None Reported Past Surgical History: Cholecystectomy, EPS, Heart Catheterization, Hernia Repair, Prostate Surgery Additional Past Surgical History / Comment(s): COLONOSCOPY, LEFT CAROTID SURGERY, VASECTOMY, facial moles removed. prostate removed. heart cath x5. Past Anesthesia/Blood Transfusion Reactions: Postoperative Nausea & Vomiting (PONV) Additional Past Anesthesia/Blood Transfusion Reaction / Comment(s): PONV after hernia surgery only. Past Psychological History: No Psychological Hx Reported Smoking Status: Former smoker Past Alcohol Use History: None Reported Additional Past Alcohol Use History / Comment(s): QUIT SMOKING 29 YRS AGO. Past Drug Use History: None Reported - Past Family History Mother Family Medical History: Cancer Brother(s) Family Medical History: Cancer Sister(s) Family Medical History: Cancer Medications and Allergies Home Medications Medication Instructions Recorded Confirmed Type C,E,Zinc,Copper 11/Lnzhs0s/Lut 1 tab PO DAILY 06/27/17 03/21/24 History [Ocuvite Adult 50 Plus Softgel] Ezetimibe [Zetia] 10 mg PO DAILY 06/27/17 03/21/24 History Vitamin E (Dl,Tocopheryl Acet) 400 unit PO DAILY 06/27/17 03/21/24 History [Vitamin E (400 Iu = 180 mg)] flaxseed oiL [[place]-3 Flaxseed Oil] 1,000 mg PO HS 06/27/17 03/21/24 History glipiZIDE XL [Glucotrol XL] 10 mg PO DAILY 06/27/17 03/21/24 History Donepezil HCl [Aricept] 10 mg PO HS 06/29/21 03/21/24 History Eylea 1 dose INJ Q42D 06/29/21 03/21/24 History Fluticasone/Umeclidin/Vilanter 1 puff INHALATION RT-DAILY 08/26/22 03/21/24 History [Trelegy Ellipta 100-62.5-25] Glucosam/J Carlos-Msm1/C/Gerard/Bosw 1 tab PO DAILY 08/26/22 03/21/24 History [Glucosamine-Chondroitin Tablet] Sennosides [Senokot] 8.6 mg PO DAILY PRN 08/26/22 03/21/24 History Turmeric Root Extract [Turmeric 500 mg PO HS 08/26/22 03/21/24 History Curcumin] Acetaminophen [Tylenol Arthritis] 650 mg PO BID 03/21/24 03/21/24 History Aspirin EC [Ecotrin Low Dose] 81 mg PO HS 03/21/24 03/21/24 History Capmatinib Hydrochloride [Tabrecta] 400 mg PO BID 03/21/24 03/21/24 History Cephalexin [Keflex] 500 mg PO QID 03/21/24 03/21/24 History Escitalopram [Lexapro] 10 mg PO HS 03/21/24 03/21/24 History Ferrous Sulfate [Feosol] 325 mg PO DAILY 03/21/24 03/21/24 History Fexofenadine HCl [Liliana Allergy] 180 mg PO DAILY 03/21/24 03/21/24 History Magnesium 250 mg PO DAILY 03/21/24 03/21/24 History Mv-Min/Folic/K1/Lycopen/Lutein 1 tab PO DAILY 03/21/24 03/21/24 History [Centrum Silver Men Tablet] Lynette Carb 1 tab PO BID 03/21/24 03/21/24 History Spironolactone [Aldactone] 50 mg PO DAILY 03/21/24 03/21/24 History metOLazone [Zaroxolyn] 2.5 mg PO DAILY 03/21/24 03/21/24 History polyethylene glycoL 3350 [Clearlax] 1 packet PO DAILY PRN 03/21/24 03/21/24 Hist ory predniSONE 10 mg PO BID 03/21/24 03/21/24 History Allergies Allergy/AdvReac Type Severity Reaction Status Date / Time Qtlqmus-EOX-TuX Reductase Allergy Unknown Verified 03/21/24 19:59 Inhibitor Physical Exam Vitals: Vital Signs Temp Pulse Pulse Resp BP BP Pulse Ox 03/22/24 07:32 97.8 F 75 16 142/53 98 03/22/24 02:00 98 F 67 16 119/56 94 L 03/21/24 22:45 98.1 F 75 16 133/55 94 L 03/21/24 22:00 71 16 130/54 96 03/21/24 18:51 20 03/21/24 18:45 66 20 129/43 96 03/21/24 17:18 97.7 F 63 129/55 97 03/21/24 13:04 98.0 F 68 18 121/74 96 Intake and Output 03/21/24 03/22/24 03/22/24 22:59 06:59 14:59 Intake Total 720 Balance 720 Intake: Oral 720 Other: Voiding Method Urinal Urinal # Voids 2 # Bowel Movements 1 Weight 75.75 kg GENERAL EXAM: Alert, very pleasant 83-year-old male, on 2 L nasal cannula, fairly comfortable in no apparent distress. HEAD: Normocephalic. EYES: Normal reaction of pupils, equal size. NOSE: Clear with pink turbinates. THROAT: No erythema or exudates. NECK: No masses, no JVD. CHEST: No chest wall deformity. LUNGS: Equal air entry with crackles and dullness of the bilateral bases. CVS: S1 and S2 normal with no audible murmur, regular rhythm. ABDOMEN: No hepatosplenomegaly, normal bowel sounds, no guarding or rigidity. SPINE: No scoliosis or deformity SKIN: No rashes CENTRAL NERVOUS SYSTEM: No focal deficits, tone is normal in all 4 extremities. EXTREMITIES: There is no peripheral edema. No clubbing, no cyanosis. Peripheral pulses are intact. Results - Laboratory Findings CBC and BMP: 03/21/24 13:49 03/22/24 05:44 PT/INR, D-dimer PT 10.4 sec (10.0-12.5) 03/21/24 13:49 INR 0.9 (<1.2) 03/21/24 13:49 Abnormal lab findings: Abnormal Labs 03/21/24 03/21/24 03/21/24 13:49 13:49 23:17 WBC 23.3 H RBC 4.01 L Hgb 10.5 L Hct 34.4 L MCHC 30.4 L Plt Count 671 H Neutrophils # 21.9 H Lymphocytes # 0.6 L Sodium 133 L BUN 40 H Creatinine 1.53 H Glucose 174 H POC Glucose (mg/dL) 205 H Magnesium 2.7 H ALT 52 H Total Protein 5.6 L Albumin 2.6 L 03/22/24 03/22/24 05:44 05:44 WBC RBC Hgb Hct MCHC Plt Count Neutrophils # Lymphocytes # Sodium BUN Creatinine 1.84 H Glucose POC Glucose (mg/dL) Magnesium ALT Total Protein 4.7 L Albumin - Diagnostic Findings Chest x-ray: image reviewed Assessment and Plan Assessment: Acute hypoxic respiratory failure secondary to bilateral pleural effusions. Status post right sided thoracentesis today with 1.5 L of cloudy, yellow, milky fluid returned. Fluid analysis and cytology pending History of adenocarcinoma of the lung, diagnosed in June 2021, currently on Tabrecta History of previous bilateral pleural effusions s/p thoracentesis x 2 back in September 2022. Cytology negative for malignancy History of prostate source status post surgery Diabetes mellitus Hypertension Hyperlipidemia Former chronic tobacco dependence Plan: The patient was seen and evaluated Chest x-rays, labs and medications reviewed Ultrasound of the chest reviewed Status post right sided thoracentesis today 1.5 L of fluid removed Fluid analysis and cytology pending Follow-up chest x-ray reveals no pneumothorax Plans for left-sided thoracentesis tomorrow Procalcitonin is negative Antibiotics discontinued Currently stable on 2 L per nasal cannula DNR CODE STATUS We will continue to follow and make further recommendations based on his clinical status I have personally seen and examined the patient, performed the documentation and the assessment and plan as written. Number of minutes spent on the visit: 20 Dictation was produced using [employer] dictation software. Please excuse any grammatical, word or spelling errors.
[2024-03-22 12:17] LABS: Glucose,Whole Blood 169 mg/dL (70-110)
--- NOTE | 2024-03-22 13:46 | P.HPIM ---
History of Present Illness H&P Date: 03/22/24 History of present illness; patient is a 83-year-old gentleman with past medical history significant for lung cancer, coronary disease presented the ER because of shortness of breath. Patient stated that he has been feeling short of breath for the last 3 weeks. Shortness of breath is present on rest as on exertion. Patient also complaining of chest pressure on exertion, chest pressure is centra l, nonradiating, aggravated by exertion, no relieving factor associated with this chest pressure. Patient also complaining of wheezing. Patient denies any fever or chills. Because of the symptoms, patient brought in the ER Initial lab work done in the ER showed WBC 23.3, hemoglobin 8.5, platelet count 671, sodium 133, potassium 4.8, BUN 40, creatinine 1.53, glucose 174, magnesium 2.7, proBNP 1500 Influenza A not detected Influenza B not detected RSV not detected COVID-19 not detected EKG done in the ER showed heart rate of , no ST segment elevation or depression seen, no T-wave inversions seen. Chest x-ray done in the ER showed cardiomegaly, pulmonary vascular congestion and bilateral small pleural effusions with atelectasis. Patient admitted to internal medicine service REVIEW OF SYSTEMS: CONSTITUTIONAL: No fever, no malaise, no fatigue. HEENT: No recent visual problems or hearing problems. Denied any sore throat. CARDIOVASCULAR: As mentioned above PULMONARY: As mentioned above GASTROINTESTINAL: No diarrhea, no nausea, no vomiting, no abdominal pain. NEUROLOGICAL: No headaches, no weakness, no numbness. HEMATOLOGICAL: Denies any bleeding or petechiae. GENITOURINARY: Denies any burning micturition, frequency, or urgency. MUSCULOSKELETAL/RHEUMATOLOGICAL: Denies any joint pain, swelling, or any muscle pain. ENDOCRINE: Denies any polyuria or polydipsia. The rest of the 14-point review of systems is negative. PHYSICAL EXAMINATION: GENERAL: The patient is alert and oriented x3, ill looking HEENT: Pupils are round and equally reacting to light. EOMI. No scleral icterus. No conjunctival pallor. Normocephalic, atraumatic. No pharyngeal erythema. No thyromegaly. CARDIOVASCULAR: S1 and S2 present. No murmurs, rubs, or gallops. PULMONARY: Diminished breath sound bilaterally, no wheezing or crackles. ABDOMEN: Soft, nontender, nondistended, normoactive bowel sounds. No palpable organomegaly. MUSCULOSKELETAL: No joint swelling or deformity. EXTREMITIES: No cyanosis, clubbing, 1+ pitting edema of lower extremities bilaterally NEUROLOGICAL: Gross neurological examination did not reveal any focal deficits. SKIN: No rashes. Assessment and plan Bilateral pleural effusion Acute hypoxic respiratory failure History of adenocarcinoma of the lung, diagnosed in June 2021, currently on Tabrecta History of previous bilateral pleural effusions s/p thoracentesis x 2 back in September 2022. Cytology negative for malignancy History of prostate source status post surgery Diabetes mellitus Hypertension Hyperlipidemia Former chronic tobacco dependence Monitor vital signs Monitor CBC Monitor CMP Continue telemetry monitoring Ordered blood cultures Ordered breathing treatments Ordered ultrasound chest Ordered IV Zosyn Pro-Agapito ordered Pulmonology consulted Oncology consulted Labs and medication were reviewed.. Continue same treatment. Continue with symptomatic treatment. Resume home medication. Monitor labs and vitals. DVT and GI prophylaxis. Further recommendations as per clinical course of the patient Dictation was produced using [employer] dictation software. please excuse any grammatical, word or spelling errors. Past Medical History Past Medical History: Cancer, Diabetes Mellitus, Eye Disorder, Hearing Disorder / Deafness, Hyperlipidemia, Osteoarthritis (OA), Pneumonia Additional Past Medical History / Comment(s): Hard of hearing, , HX PROSTATE CANCER 2010. Lung Cancer 2021 History of Any Multi-Drug Resistant Organisms: None Reported Past Surgical History: Cholecystectomy, EPS, Heart Catheterization, Hernia Repair, Prostate Surgery Additional Past Surgical History / Comment(s): COLONOSCOPY, LEFT CAROTID SURGERY, VASECTOMY, facial moles removed. prostate removed. heart cath x5. Past Anesthesia/Blood Transfusion Reactions: Postoperative Nausea & Vomiting (PONV) Additional Past Anesthesia/Blood Transfusion Reaction / Comment(s): PONV after hernia surgery only. Past Psychological History: No Psychological Hx Reported Smoking Status: Former smoker Past Alcohol Use History: None Reported Additional Past Alcohol Use History / Comment(s): QUIT SMOKING 29 YRS AGO. Past Drug Use History: None Reported - Past Family History Mother Family Medical History: Cancer Brother(s) Family Medical History: Cancer Sister(s) Family Medical History: Cancer Medications and Allergies Home Medications Medication Instructions Recorded Confirmed Type C,E,Zinc,Copper 11/Pitws3i/Lut 1 tab PO DAILY 06/27/17 03/21/24 History [Ocuvite Adult 50 Plus Softgel] Ezetimibe [Zetia] 10 mg PO DAILY 06/27/17 03/21/24 History Vitamin E (Dl,Tocopheryl Acet) 400 unit PO DAILY 06/27/17 03/21/24 History [Vitamin E (400 Iu = 180 mg)] flaxseed oiL [[place]-3 Flaxseed Oil] 1,000 mg PO HS 06/27/17 03/21/24 History glipiZIDE XL [Glucotrol XL] 10 mg PO DAILY 06/27/17 03/21/24 History Donepezil HCl [Aricept] 10 mg PO HS 06/29/21 03/21/24 History Eylea 1 dose INJ Q42D 06/29/21 03/21/24 History Fluticasone/Umeclidin/Vilanter 1 puff INHALATION RT-DAILY 08/26/22 03/21/24 History [Trelegy Ellipta 100-62.5-25] Glucosam/J Carlos-Msm1/C/Gerard/Bosw 1 tab PO DAILY 08/26/22 03/21/24 History [Glucosamine-Chondroitin Tablet] Sennosides [Senokot] 8.6 mg PO DAILY PRN 08/26/22 03/21/24 History Turmeric Root Extract [Turmeric 500 mg PO HS 08/26/22 03/21/24 History Curcumin] Acetaminophen [Tylenol Arthritis] 650 mg PO BID 03/21/24 03/21/24 History Aspirin EC [Ecotrin Low Dose] 81 mg PO HS 03/21/24 03/21/24 History Capmatinib Hydrochloride [Tabrecta] 400 mg PO BID 03/21/24 03/21/24 History Cephalexin [Keflex] 500 mg PO QID 03/21/24 03/21/24 History Escitalopram [Lexapro] 10 mg PO HS 03/21/24 03/21/24 History Ferrous Sulfate [Feosol] 325 mg PO DAILY 03/21/24 03/21/24 History Fexofenadine HCl [Liliana Allergy] 180 mg PO DAILY 03/21/24 03/21/24 History Magnesium 250 mg PO DAILY 03/21/24 03/21/24 History Mv-Min/Folic/K1/Lycopen/Lutein 1 tab PO DAILY 03/21/24 03/21/24 History [Centrum Silver Men Tablet] Lynette Carb 1 tab PO BID 03/21/24 03/21/24 History Spironolactone [Aldactone] 50 mg PO DAILY 03/21/24 03/21/24 History metOLazone [Zaroxolyn] 2.5 mg PO DAILY 03/21/24 03/21/24 History polyethylene glycoL 3350 [Clearlax] 1 packet PO DAILY PRN 03/21/24 03/21/24 History predniSONE 10 mg PO BID 03/21/24 03/21/24 History Allergies Allergy/AdvReac Type Severity Reaction Status Date / Time Tublqkc-UPM-BhB Reductase Allergy Unknown Verified 03/21/24 19:59 Inhibitor Physical Exam Vitals: Vital Signs Temp Pulse Pulse Resp BP BP Pulse Ox 03/22/24 07:32 97.8 F 75 16 142/53 98 03/22/24 02:00 98 F 67 16 119/56 94 L 03/21/24 22:45 98.1 F 75 16 133/55 94 L 03/21/24 22:00 71 16 130/54 96 03/21/24 18:51 20 03/21/24 18:45 66 20 129/43 96 03/21/24 17:18 97.7 F 63 129/55 97 03/21/24 13:04 98.0 F 68 18 121/74 96 Intake and Output 03/21/24 03/22/24 03/22/24 22:59 06:59 14:59 Intake Total 720 Balance 720 Intake: Oral 720 Other: Voiding Method Urinal Urinal # Voids 2 # Bowel Movements 1 Weight 75.75 kg Results CBC & Chem 7: 03/21/24 13:49 03/22/24 05:44 Labs: Abnormal Lab Results - Last 24 Hours (Table) 03/21/24 03/21/24 03/21/24 Range/Units 13:49 13:49 23:17 WBC 23.3 H (3.8-10.6) k/uL RBC 4.01 L (4.30-5.90) m/uL Hgb 10.5 L (13.0-17.5) gm/dL Hct 34.4 L (39.0-53.0) % MCHC 30.4 L (31.0-37.0) g/dL Plt Count 671 H (150-450) k/uL Neutrophils # 21.9 H (1.3-7.7) k/uL Lymphocytes # 0.6 L (1.0-4.8) k/uL Sodium 133 L (137-145) mmol/L BUN 40 H (9-20) mg/dL Creatinine 1.53 H (0.66-1.25) mg/dL Glucose 174 H (74-99) mg/dL POC Glucose (mg/dL) 205 H (70-110) mg/dL Magnesium 2.7 H (1.6-2.3) mg/dL ALT 52 H (4-49) U/L Total Protein 5.6 L (6.3-8.2) g/dL Albumin 2.6 L (3.5-5.0) g/dL 03/22/24 03/22/24 Range/Units 05:44 05:44 WBC (3.8-10.6) k/uL RBC (4.30-5.90) m/uL Hgb (13.0-17.5) gm/dL Hct (39.0-53.0) % MCHC (31.0-37.0) g/dL Plt Count (150-450) k/uL Neutrophils # (1.3-7.7) k/uL Lymphocytes # (1.0-4.8) k/uL Sodium (137-145) mmol/L BUN (9-20) mg/dL Creatinine 1.84 H (0.66-1.25) mg/dL Glucose (74-99) mg/dL POC Glucose (mg/dL) (70-110) mg/dL Magnesium (1.6-2.3) mg/dL ALT (4-49) U/L Total Protein 4.7 L (6.3-8.2) g/dL Albumin (3.5-5.0) g/dL Thrombosis Risk Factor Assmnt - Choose All That Apply Each Factor Represents 1 point: Serious lung disease incl. pneumonia (< 1month) Other Risk Factors: Yes Each Risk Factor Represents 3 Points: Age 75 years or older Thrombosis Risk Factor Assessment Total Risk Factor Score: 4 Thrombosis Risk Factor Assessment Level: Moderate Risk
[2024-03-22] MEDS: ACETAMINOPHEN TAB 325 MG TAB PO PRN (14:57)
--- NOTE | 2024-03-22 16:30 | P.CONS ---
History of Present Illness - Reason for Consult Consult date: 03/22/24 Locally advanced NSCLC - Chief Complaint Dyspnea - History of Present Illness Mr. 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 He had staging CT scans performed on 02/28/2024 that noted new right lung nodules including 13 mm nodule in the right lung base anteriorly and 9.6 mm nodule in the right upper lobe. At that time, there was an increasing right pleural effusion and new small left pleural effusion. Previously visualized 14 mm lung nodule in the right apex and 27 mm consolidative density in the left lower lobe were stable. Brain MRI on 03/03/2024 noted no suspicious findings for malignancy. Recently, he was diagnosed with cellulitis of the right lower extremity and started on Keflex. Over the past few days, he has had progressive dyspnea with no accompanying fevers or chills. This prompted presentation to the ED for additional management. In the ED, he was afebrile and hemodynamically stable. Labs revealed creatinine 1.53 that appears to be stable from previous findings, sodium 133, proBNP 1500, WBC 23.3 (ANC 21.9), hemoglobin 10.5 (MCV 85.8), platelets 671. Viral PCR was negative. Chest x-ray revealed cardiomegaly with pulmonary vascular congestion and bilateral small pleural effusions with atelectasis. Ultrasound of the chest revealed large bilateral pleural effusions. He received Lasix 40 mg IV x 1 in addition to vancomycin/Zosyn. Pulmonology was consulted and underwent right- sided thoracentesis today, draining 1.5 L of cloudy yellow fluid with fluid studies including cytology pending. Currently, he notes improved breathing since the thoracentesis. He feels swelling in the right lower extremity has also improved. He denies any new signs or symptoms. He did inquire into whether Tabrecta should be restarted inpatient. Review of Systems 14 point review of systems was conducted pertinent positives and negatives as noted per HPI Past Medical History Past Medical History: Cancer, Diabetes Mellitus, Eye Disorder, Hearing Disorder / Deafness, Hyperlipidemia, Osteoarthritis (OA), Pneumonia Additional Past Medical History / Comment(s): Hard of hearing, , HX PROSTATE CANCER 2010. Lung Cancer 2021 History of Any Multi-Drug Resistant Organisms: None Reported Past Surgical History: Cholecystectomy, EPS, Heart Catheterization, Hernia Repair, Prostate Surgery Additional Past Surgical History / Comment(s): COLONOSCOPY, LEFT CAROTID SURGERY, VASECTOMY, facial moles removed. prostate removed. heart cath x5. Past Anesthesia/Blood Transfusion Reactions: Postoperative Nausea & Vomiting (PONV) Additional Past Anesthesia/Blood Transfusion Reaction / Comm: PONV after hernia surgery only. Past Psychological History: No Psychological Hx Reported Smoking Status: Former smoker Past Alcohol Use History: None Reported Additional Past Alcohol Use History / Comment(s): QUIT SMOKING 29 YRS AGO. Past Drug Use History: None Reported - Past Family History Mother Family Medical History: Cancer Brother(s) Family Medical History: Cancer Sister(s) Family Medical History: Cancer Medications and Allergies Home Medications Medication Instructions Recorded Confirmed Type C,E,Zinc,Copper 11/Lnunl6v/Lut 1 tab PO DAILY 06/27/17 03/21/24 History [Ocuvite Adult 50 Plus Softgel] Ezetimibe [Zetia] 10 mg PO DAILY 06/27/17 03/21/24 History Vitamin E (Dl,Tocopheryl Acet) 400 unit PO DAILY 06/27/17 03/21/24 History [Vitamin E (400 Iu = 180 mg)] flaxseed oiL [[place]-3 Flaxseed Oil] 1,000 mg PO HS 06/27/17 03/21/24 History glipiZIDE XL [Glucotrol XL] 10 mg PO DAILY 06/27/17 03/21/24 History Donepezil HCl [Aricept] 10 mg PO HS 06/29/21 03/21/24 History Eylea 1 dose INJ Q42D 06/29/21 03/21/24 History Fluticasone/Umeclidin/Vilanter 1 puff INHALATION RT-DAILY 08/26/22 03/21/24 History [Trelegy Ellipta 100-62.5-25] Glucosam/J Carlos-Msm1/C/Gerard/Bosw 1 tab PO DAILY 08/26/22 03/21/24 History [Glucosamine-Chondroitin Tablet] Sennosides [Senokot] 8.6 mg PO DAILY PRN 08/26/22 03/21/24 History Turmeric Root Extract [Turmeric 500 mg PO HS 08/26/22 03/21/24 History Curcumin] Acetaminophen [Tylenol Arthritis] 650 mg PO BID 03/21/24 03/21/24 History Aspirin EC [Ecotrin Low Dose] 81 mg PO HS 03/21/24 03/21/24 History Capmatinib Hydrochloride [Tabrecta] 400 mg PO BID 03/21/24 03/21/24 History Cephalexin [Keflex] 500 mg PO QID 03/21/24 03/21/24 History Escitalopram [Lexapro] 10 mg PO HS 03/21/24 03/21/24 History Ferrous Sulfate [Feosol] 325 mg PO DAILY 03/21/24 03/21/24 History Fexofenadine HCl [Liliana Allergy] 180 mg PO DAILY 03/21/24 03/21/24 History Magnesium 250 mg PO DAILY 03/21/24 03/21/24 History Mv-Min/Folic/K1/Lycopen/Lutein 1 tab PO DAILY 03/21/24 03/21/24 History [Centrum Silver Men Tablet] Lynette Carb 1 tab PO BID 03/21/24 03/21/24 History Spironolactone [Aldactone] 50 mg PO DAILY 03/21/24 03/21/24 History metOLazone [Zaroxolyn] 2.5 mg PO DAILY 03/21/24 03/21/24 History polyethylene glycoL 3350 [Clearlax] 1 packet PO DAILY PRN 03/21/24 03/21/24 History predniSONE 10 mg PO BID 03/21/24 03/21/24 History Allergies Allergy/AdvReac Type Severity Reaction Status Date / Time [id number] Reductase Allergy Unknown Verified 03/21/24 19:59 Inhibitor Physical Exam Vitals: Vital Signs Temp Pulse Pulse Resp BP BP Pulse Ox 03/22/24 07:32 97.8 F 75 16 142/53 98 03/22/24 02:00 98 F 67 16 119/56 94 L 03/21/24 22:45 98.1 F 75 16 133/55 94 L 03/21/24 22:00 71 16 130/54 96 03/21/24 18:51 20 03/21/24 18:45 66 20 129/43 96 03/21/24 17:18 97.7 F 63 129/55 97 Intake and Output 03/21/24 03/22/2425 22:59 06:59 14:59 Intake Total 720 Balance 720 Intake: Oral 720 Other: Voiding Method Urinal Urinal # Voids 2 # Bowel Movements 1 Weight 75.75 kg - Constitutional General appearance: cooperative, no acute distress - EENT Eyes: EOMI - Respiratory Respiratory: right: other (Decreased breath sounds at the right lung base) - Cardiovascular Warm and well-perfused - Gastrointestinal General gastrointestinal: no distended, soft - Integumentary Integumentary: pale - Neurologic Neurologic: CNII-XII intact Results CBC & Chem 7: 03/21/24 13:49 03/22/24 05:44 Labs: Abnormal Lab Results - Last 24 Hours (Table) 03/21/24 03/21/24 03/21/24 Range/Units 13:49 13:49 23:17 WBC 23.3 H (3.8-10.6) k/uL RBC 4.01 L (4.30-5.90) m/uL Hgb 10.5 L (13.0-17.5) gm/dL Hct 34.4 L (39.0-53.0) % MCHC 30.4 L (31.0-37.0) g/dL Plt Count 671 H (150-450) k/uL Neutrophils # 21.9 H (1.3-7.7) k/uL Lymphocytes # 0.6 L (1.0-4.8) k/uL Sodium 133 L (137-145) mmol/L BUN 40 H (9-20) mg/dL Creatinine 1.53 H (0.66-1.25) mg/dL Glucose 174 H (74-99) mg/dL POC Glucose (mg/dL) 205 H (70-110) mg/dL Magnesium 2.7 H (1.6-2.3) mg/dL ALT 52 H (4-49) U/L Total Protein 5.6 L (6.3-8.2) g/dL Albumin 2.6 L (3.5-5.0) g/dL 03/22/24 03/22/24 03/22/24 Range/Units 05:44 05:44 12:16 WBC (3.8-10.6) k/uL RBC (4.30-5.90) m/uL Hgb (13.0-17.5) gm/dL Hct (39.0-53.0) % MCHC (31.0-37.0) g/dL Plt Count (150-450) k/uL Neutrophils # (1.3-7.7) k/uL Lymphocytes # (1.0-4.8) k/uL Sodium (137-145) mmol/L BUN (9-20) mg/dL Creatinine 1.84 H (0.66-1.25) mg/dL Glucose (74-99) mg/dL POC Glucose (mg/dL) 169 H (70-110) mg/dL Magnesium (1.6-2.3) mg/dL ALT (4-49) U/L Total Protein 4.7 L (6.3-8.2) g/dL Albumin (3.5-5.0) g/dL Assessment and Plan (1) Non-small cell carcinoma of lung, stage 3 Current Visit: Yes Status: Chronic Code(s): C34.90 - MALIGNANT NEOPLASM OF UNSP PART OF UNSP BRONCHUS OR LUNG SNOMED Code(s): 117476344 (2) Pleural effusion, bilateral Current Visit: Yes Status: Acute Code(s): J90 - PLEURAL EFFUSION, NOT ELSEWHERE CLASSIFIED SNOMED Code(s): 345911714 (3) Neutrophilic leukocytosis Current Visit: Yes Status: Acute Code(s): D72.828 - OTHER ELEVATED WHITE BLOOD CELL COUNT SNOMED Code(s): 212803676 (4) Thrombocytosis Current Visit: Yes Status: Acute Code(s): D75.839 - THROMBOCYTOSIS, UNSPECIFIED SNOMED Code(s): 7351152 (5) Iron deficiency anemia Current Visit: Yes Status: Acute Code(s): D50.9 - IRON DEFICIENCY ANEMIA, UNSPECIFIED SNOMED Code(s): 23893265 Plan: #Bilateral pleural effusions -Presented with increased dyspnea -Chest x-ray knowing cardiomegaly with pulmonary edema and chest ultrasound revealing large bilateral pleural effusions -Underwent right-sided thoracentesis on 03/22/2024 with left-sided thoracentesis planned for 03/23/2024 -Differential diagnosis includes CHF exacerbation, side effect of trabecula, or progression of underlying lung cancer -Agree with sending cytology of pleural fluid from bilateral thoracentesis -Capmatinib can be held for now -Given the elevated BNP, echocardiogram will be ordered #Stage IIIc non-small cell lung cancer -Diagnosed in June 2021 and 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 -Has been on capmatinib with disease control since then -Staging CT scans in 02/28/2024 had shown potential new nodules in the right lower lobe and right upper lobe with increasing right pleural effusion and new small left pleural effusion -Plan was for PET scan to be performed outpatient on 04/03/2024 -Follow-up cytology from pleural fluid and hold capmatinib as above #Neutrophilic leukocytosis and thrombocytosis -Noted on outpatient labs on 03/18/2024 for WBC was 16.7 (ANC 14.1) and platelets 421 -Neutrophilic leukocytosis could be secondary to cellulitis with thrombocytosis secondary to acute infection superimposed on iron deficiency -Continue to monitor #Iron deficiency anemia -Diagnosed outpatient and underwent Feraheme on 02/29/2024 and 03/07/2024 -Was scheduled for third dose of Feraheme, but was held due to ongoing cellulitis -Third dose could be administered outpatient Jackie Jennings MD
--- NOTE | 2024-03-22 16:58 | OP ---
OPERATIVE REPORT DATE OF SERVICE : OPERATIVE REPORT: Right-sided thoracentesis. PREOPERATIVE DIAGNOSIS: Right pleural effusion. POSTOPERATIVE DIAGNOSIS: Right pleural effusion. ANESTHESIA USED: 2 mL of 1% lidocaine. PROCEDURE: The patient was placed in a sitting upright position, the area below the right scapula was prepared in a sterile fashion, drapes were applied. The area of the fluid was earlier localized by ultrasound and marking was placed. The marking was actually over the 8th intercostal space and tip of the scapula. The area was locally anesthetized, a 26-gauge needle inserted at the same site, advanced into the pleural space and the fluid was localized with the needle. Then, a small tiny incision was made at the same site, and a standard thoracentesis catheter and needle used, advanced into the pleural space. Fluid was obtained. Then, the catheter was advanced over the needle and the needle was pulled out of the pleural space. Freely flowing fluid was removed, roughly 1600 mL of turbid yellow fluid removed from the pleural space, procedure was well tolerated, no complications, chest x-ray showed no evidence of pneumothorax and significant improvement in the size of the pleural effusion. Again, no complications. Fluid was sent for different diagnostic studies. MMODL / IJN: [id number] /
[2024-03-22] MEDS ORDERED: VANCOMYCIN 1,250 MG in SODIUM CHLORIDE 0.9% 250 ML IVPB SCH (17:00)
[2024-03-22 17:23] LABS: Glucose,Whole Blood 78 mg/dL (70-110)
[2024-03-22] MEDS ORDERED: polyethylene glycoL 3350 17 GM POWD.PACK PO PRN (17:55)
[2024-03-22] MEDS ORDERED: SENNOSIDES 8.6 MG TAB PO PRN (17:55)
[2024-03-22] MEDS ORDERED: DEXTROSE 50% SYRINGE 50 ML IVP PRN ×2 (17:57)
[2024-03-22 20:12] LABS: Glucose,Whole Blood 201 mg/dL (70-110)
[2024-03-22] MEDS ORDERED: NON FORMULARY DRUG (Turmeric Root Extract [Turmeric Curcumin] 500 MG Capsule) PO SCH (21:00)
[2024-03-22] MEDS ORDERED: NON FORMULARY DRUG (Flaxseed Oil [Omega-3 Flaxseed Oil] 1,000 MG Capsule) PO SCH (21:00)
[2024-03-22] MEDS: DONEPEZIL 10 MG TAB PO SCH (21:16)
[2024-03-22] MEDS: ESCITALOPRAM 10 MG TAB PO SCH (21:16)
[2024-03-22] MEDS: predniSONE 10 MG TAB PO SCH (21:16)
[2024-03-22] MEDS: FOLIC ACID-VIT B COMPLEX-VIT C 1 CAP PO SCH (21:16)
[2024-03-23 06:53] LABS: African American GFR (CKD) 52 (>60 ml/min/1.73 sqM); Non-African American GFR(CKD) 45 (>60 ml/min/1.73 sqM)
[2024-03-23 07:41] LABS: Glucose,Whole Blood 133 mg/dL (70-110)
[2024-03-23 08:35] LABS: Appearance,BF Slightly Cloudy (Clear)
[2024-03-23] MEDS: LORATADINE 10 MG TAB PO SCH (08:57)
[2024-03-23] MEDS: MULTIVITAMINS, THERA 1 EACH TAB PO SCH (08:57)
[2024-03-23] MEDS: EZETIMIBE 10 MG TAB PO SCH (08:57)
[2024-03-23] MEDS: FERROUS SULFATE 325 MG TAB PO SCH (08:57)
[2024-03-23] MEDS: MAGNESIUM OXIDE 400 MG TAB PO SCH (08:57)
[2024-03-23] MEDS: VITAMIN E (DL,TOCOPHERYL ACET) 400 UNIT (180 MG) CAP PO SCH (08:58)
[2024-03-23] MEDS ORDERED: NON FORMULARY DRUG (Glucosam/Chon-Msm1/C/Mang/Bosw [Glucosamine-Chondroitin Tablet] 1 EACH PO SCH (09:00)
--- NOTE | 2024-03-23 09:32 | XR ---
EXAMINATION TYPE: XR chest 1V portable DATE OF EXAM: 03/23/2024 COMPARISON: 03/22/2024 CLINICAL INDICATION: Male, 83 years old with history of Left thoracentesis; TECHNIQUE: Single frontal view of the chest is obtained. FINDINGS: Following left thoracentesis there is resolution of the left pleural effusion. There is no pneumothor ax. There is a small but increasing right pleural effusion. The heart size is normal for the technique. Pulmonary vascular does not appear congested. The osseous structures are intact. IMPRESSION: 1. Resolution of left pleural effusion following left thoracentesis. No pneumothorax. 2. Small but increasing right pleural effusion. [facility], , 03/23/2024 9:30 AM
[2024-03-23] MEDS: TIOTROPIUM 2.5 MCG INHALER INHALATION SCH (11:26)
[2024-03-23 12:21] LABS: Glucose,Whole Blood 223 mg/dL (70-110)
--- NOTE | 2024-03-23 12:35 | P.PN ---
Subjective Progress Note Date: 03/23/24 This is a very pleasant 83-year-old male patient with a known history of kidney disease, chronic obstructive pulmonary disease, adenocarcinoma of the lung diagnosed in June 2021 and is currently on Tabrecta. Previous history of recurrent bilateral pleural effusions however his last bilateral thoracentesis was back in September 2022. Negative for malignancy x 2. He had been doing well since that time until recently he had developed increasing shortness of breath and dyspnea on minimal exertion. He presented here to the emergency room for the same yesterday. Chest x-ray did show significant bilateral pleural effusions. White count 23.3. Hemoglobin 10.5. Platelets 671. INR 0.9. Sodium 133. Potassium 4.8. Bicarb 30. BUN 40. Creatinine 1.53. Glucose 174. proBNP 1500. Procalcitonin 0.08. Viral screen negative. He is seen today in consultation on the regular medical floor. He is currently sitting up in bed. Awake and alert in no acute distress. Maintaining O2 saturations in the 90s on 2 L/min per nasal cannula. He had been initiated on vancomycin and Zosyn. He did undergo a right sided thoracentesis today with Dr. Olivas. 1.5 L of cloudy, yellow, milky fluid returned. Fluid analysis and cytology are pending. The patient is seen today March 23, 2024 in follow-up on the regular medical floor. He is currently sitting up in bed. Awake and alert having breakfast. Denies any worsening shortness of breath. He is maintaining good O2 saturation in the mid 90s on room air. He is afebrile. Hemodynamically stable. He feels a bit better today compared to yesterday. He is status post right sided thoracentesis yesterday fluid analysis and cytology pending. He did undergo a left-sided thoracentesis today with 750 mL of cloudy, yellow milky fluid returned. Cytology pending. Creatinine 1.42. Glucose 223. Procalcitonin negative at 0.08. Objective - Vital Signs Vital signs: Vital Signs Temp 97.9 F 03/23/24 07:30 Pulse 70 03/23/24 07:30 Resp 18 03/23/24 07:30 BP 132/63 03/23/24 07:30 Pulse Ox 96 03/23/24 07:30 FiO2 Intake & Output 03/22/24 03/23/24 03/23/24 18:59 06:59 18:59 Intake Total 960 Output Total 650 Balance 960 -650 Intake: Intake, IV Titration 240 Amount Sodium Chloride 0.9% 1, 240 000 ml @ 20 mls/hr IV . Q24H [facility] Rx#:[id number] Oral 720 Output: Urine 650 Other: Voiding Method Urinal Urinal Toilet Urinal # Voids 2 2 # Bowel Movements 1 - Exam GENERAL EXAM: Alert, pleasant 83-year-old male, on room air, comfortable in no apparent distress. HEAD: Normocephalic. EYES: Normal reaction of pupils, equal size. NOSE: Clear with pink turbinates. THROAT: No erythema or exudates. NECK: No masses, no JVD. CHEST: No chest wall deformity. LUNGS: Equal air entry with crackles and dullness of the bilateral bases. CVS: S1 and S2 normal with no audible murmur, regular rhythm. ABDOMEN: No hepatosplenomegaly, normal bowel sounds, no guarding or rigidity. SPINE: No scoliosis or deformity SKIN: No rashes CENTRAL NERVOUS SYSTEM: No focal deficits, tone is normal in all 4 extremities. EXTREMITIES: There is no peripheral edema. No clubbing, no cyanosis. Peripheral pulses are intact. - Labs CBC & Chem 7: 03/21/24 13:49 03/23/24 06:05 Labs: Abnormal Lab Results - Last 24 Hours (Table) 03/22/24 03/22/24 03/23/24 Range/Units 09:30 20:09 06:05 Creatinine (0.66-1.25) mg/dL POC Glucose (mg/dL) 201 H (70-110) mg/dL Hemoglobin A1c 6.1 H (<=6.0) % Fluid Appearance Slightly Cloudy A (Clear) 03/23/24 03/23/24 03/23/24 Range/Units 06:05 07:32 12:17 Creatinine 1.42 H (0.66-1.25) mg/dL POC Glucose (mg/dL) 133 H 223 H (70-110) mg/dL Hemoglobin A1c (<=6.0) % Fluid Appearance (Clear) Microbiology - Last 24 Hours (Table) 03/22/24 08:47 Nasal Screen MRSA/MSSA - Final Nasal Swab 03/21/24 18:30 Blood Culture - Preliminary Blood Assessment and Plan Assessment: Acute hypoxic respiratory failure secondary to bilateral pleural effusions. Status post right sided thoracentesis March 22, 2024 with 1.5 L of cloudy, yellow, milky fluid returned. Fluid analysis and cytology pending. Sided thor acentesis performed today March 23, 2024 with 750 mL of cloudy yellow milky fluid returned. Cytology pending History of adenocarcinoma of the lung, diagnosed in June 2021, currently on Tabrecta History of previous bilateral pleural effusions s/p thoracentesis x 2 back in September 2022. Cytology negative for malignancy History of prostate source status post surgery Diabetes mellitus Hypertension Hyperlipidemia Former chronic tobacco dependence Plan: The patient was seen and evaluated Chest x-ray, labs and medications reviewed Status post right sided thoracentesis yesterday Status post left-sided thoracentesis today Fluid analysis and cytology pending Follow-up chest x-ray reveals no pneumothorax Currently stable on room air Cleared for discharge Follow-up in our office in 1 week I have personally seen and examined the patient, performed the documentation and the assessment and plan as written. Number of minutes spent on the visit: 10 Dictation was produced using [employer] dictation software. Please excuse any grammatical, word or spelling errors.
--- NOTE | 2024-03-23 14:34 | P.PN ---
Subjective Progress Note Date: 03/23/24 patient is a 83-year-old gentleman with past medical history significant for lung cancer, coronary disease presented the ER because of shortness of breath. Patient stated that he has been feeling short of breath for the last 3 weeks. Shortness of breath is present on rest as on exertion. Patient also complaining of chest pressure on exertion, chest pressure is central, nonradiating, aggravated by exertion, no relieving factor associated with this chest pressure. Patient also complaining of wheezing. Patient denies any fever or chills. Because of the symptoms, patient brought in the ER Initial lab work done in the ER showed WBC 23.3, hemoglobin 8.5, platelet count 671, sodium 133, potassium 4.8, BUN 40, creatinine 1.53, glucose 174, magnesium 2.7, proBNP 1500 Influenza A not detected Influenza B not detected RSV not detected COVID-19 not detected EKG done in the ER showed heart rate of , no ST segment elevation or depression seen, no T-wave inversions seen. Chest x-ray done in the ER showed cardiomegaly, pulmonary vascular congestion and bilateral small pleural effusions with atelectasis. Patient admitted to internal medicine service 03/23. Patient seen and examined. Patient underwent right-sided thoracentesis yesterday and left-sided thoracentesis today. Patient stated he feels much better. Breathing has improved. REVIEW OF SYSTEMS: CONSTITUTIONAL: No fever, no malaise,. CARDIOVASCULAR: No chest pain, no palpitations, no syncope. PULMONARY: No shortness of breath, no cough, GASTROINTESTINAL: No diarrhea, no nausea, no vomiting, no abdominal pain. NEUROLOGICAL: No headaches, no weakness, PHYSICAL EXAMINATION: GENERAL: The patient is alert and oriented x3, not in any acute distress. Well developed, well nourished. HEENT: Pupils are round and equally reacting to light. EOMI. No scleral icterus. No conjunctival pallor. Normocephalic, atraumatic. No pharyngeal erythema. No thyromegaly. CARDIOVASCULAR: S1 and S2 present. No murmurs, rubs, or gallops. PULMONARY: Chest is clear to auscultation, no wheezing or crackles. ABDOMEN: Soft, nontender, nondistended, normoactive bowel sounds. No palpable organomegaly. MUSCULOSKELETAL: No joint swelling or deformity. EXTREMITIES: No cyanosis, clubbing, or pedal edema. NEUROLOGICAL: Gross neurological examination did not reveal any focal deficits. SKIN: No rashes. Assessment and plan Bilateral pleural effusion Acute hypoxic respiratory failure History of adenocarcinoma of the lung, diagnosed in June 2021, currently on Tabrecta History of previous bilateral pleural effusions s/p thoracentesis x 2 back in September 2022. Cytology negative for malignancy History of prostate source status post surgery Diabetes mellitus Hypertension Hyperlipidemia Former chronic tobacco dependence Monitor vital signs Monitor CBC Monitor CMP Continue telemetry monitoring Continue breathing treatments Follow-up on pleural fluid cytology and culture Status post right and left-sided thoracentesis Pro-Agapito is normal, antibiotic discontinued Pulmonology following Oncology following Labs and medication were reviewed.. Continue same treatment. Continue with symptomatic treatment. Resume home medication. Monitor labs and vitals. DVT and GI prophylaxis. Further recommendations as per clinical course of the patient Dictation was produced using [employer] dictation software. please excuse any grammatical, word or spelling errors. Objective - Vital Signs Vital signs: Vital Signs Temp 98.1 F 03/23/24 13:11 Pulse 74 03/23/24 13:11 Resp 17 03/23/24 13:11 BP 138/61 03/23/24 13:11 Pulse Ox 91 L 03/23/24 13:11 FiO2 Intake & Output 03/22/24 03/23/24 03/23/24 18:59 06:59 18:59 Intake Total 960 Output Total 650 Balance 960 -650 Intake: Intake, IV Titration 240 Amount Sodium Chloride 0.9% 1, 240 000 ml @ 20 mls/hr IV . Q24H [facility] Rx#:[id number] Oral 720 Output: Urine 650 Other: Voiding Method Urinal Urinal Toilet Urinal # Voids 2 2 # Bowel Movements 1 - Labs CBC & Chem 7: 03/21/24 13:49 03/23/24 06:05 Labs: Abnormal Lab Results - Last 24 Hours (Table) 03/22/24 03/22/24 03/23/24 Range/Units 09:30 20:09 06:05 Creatinine (0.66-1.25) mg/dL POC Glucose (mg/dL) 201 H (70-110) mg/dL Hemoglobin A1c 6.1 H (<=6.0) % Fluid Appearance Slightly Cloudy A (Clear) 03/23/24 03/23/24 03/23/24 Range/Units 06:05 07:32 12:17 Creatinine 1.42 H (0.66-1.25) mg/dL POC Glucose (mg/dL) 133 H 223 H (70-110) mg/dL Hemoglobin A1c (<=6.0) % Fluid Appearance (Clear) Microbiology - Last 24 Hours (Table) 03/22/24 08:47 Nasal Screen MRSA/MSSA - Final Nasal Swab 03/21/24 18:30 Blood Culture - Preliminary Blood
--- NOTE | 2024-03-23 15:33 | P.PN ---
Subjective Progress Note Date: 03/23/24 Principal diagnosis: Stage IIIC NSCLC -Afebrile, no acute events -Underwent left-sided thoracentesis today removing 750 cc of yellow cloudy/milky fluid -Reports improvement in breathing with no new signs or symptoms Objective - Vital Signs Vital signs: Vital Signs Temp 98.1 F 03/23/24 13:11 Pulse 74 03/23/24 13:11 Resp 17 03/23/24 13:11 BP 138/61 03/23/24 13:11 Pulse Ox 91 L 03/23/24 13:11 FiO2 Intake & Output 03/22/24 03/23/24 03/23/24 18:59 06:59 18:59 Intake Total 960 Output Total 650 Balance 960 -650 Intake: Intake, IV Titration 240 Amount Sodium Chloride 0.9% 1, 240 000 ml @ 20 mls/hr IV . Q24H [facility] Rx#:[id number] Oral 720 Output: Urine 650 Other: Voiding Method Urinal Urinal Toilet Urinal # Voids 2 2 # Bowel Movements 1 - Constitutional General appearance: Present: cooperative, no acute distress - EENT Eyes: Present: EOMI - Respiratory Details: Nonlabored breathing - Cardiovascular Details: Warm and well-perfused - Peripheral edema ankle Peripheral Edema: bilateral: 2+ - Gastrointestinal General gastrointestinal: Present: soft. Absent: distended - Integumentary Integumentary Comment(s): Improved erythema in the right lower extremity and is nontender to palpation - Neurologic Neurologic: Present: CNII-XII intact. Absent: focal deficits - Labs CBC & Chem 7: 03/21/24 13:49 03/23/24 06:05 Labs: Abnormal Lab Results - Last 24 Hours (Table) 03/22/24 03/22/24 03/23/24 Range/Units 09:30 20:09 06:05 Creatinine (0.66-1.25) mg/dL POC Glucose (mg/dL) 201 H (70-110) mg/dL Hemoglobin A1c 6.1 H (<=6.0) % Fluid Appearance Slightly Cloudy A (Clear) 03/23/24 03/23/24 03/23/24 Range/Units 06:05 07:32 12:17 Creatinine 1.42 H (0.66-1.25) mg/dL POC Glucose (mg/dL) 133 H 223 H (70-110) mg/dL Hemoglobin A1c (<=6.0) % Fluid Appearance (Clear) Microbiology - Last 24 Hours (Table) 03/22/24 08:47 Nasal Screen MRSA/MSSA - Final Nasal Swab 03/21/24 18:30 Blood Culture - Preliminary Blood Assessment and Plan (1) Non-small cell carcinoma of lung, stage 3 Current Visit: Yes Status: Chronic Code(s): C34.90 - MALIGNANT NEOPLASM OF UNSP PART OF UNSP BRONCHUS OR LUNG SNOMED Code(s): 839812621 (2) Pleural effusion, bilateral Current Visit: Yes Status: Acute Code(s): J90 - PLEURAL EFFUSION, NOT ELSEWHERE CLASSIFIED SNOMED Code(s): 456627438 (3) Neutrophilic leukocytosis Current Visit: Yes Status: Acute Code(s): D72.828 - OTHER ELEVATED WHITE BLOOD CELL COUNT SNOMED Code(s): 492445906 (4) Thrombocytosis Current Visit: Yes Status: Acute Code(s): D75.839 - THROMBOCYTOSIS, UNSPECIFIED SNOMED Code(s): 6397075 (5) Iron deficiency anemia Current Visit: Yes Status: Acute Code(s): D50.9 - IRON DEFICIENCY ANEMIA, UNSPECIFIED SNOMED Code(s): 44855144 Plan: #Bilateral pleural effusions -Presented with increased dyspnea -Chest x-ray knowing cardiomegaly with pulmonary edema and chest ultrasound revealing large bilateral pleural effusions -Underwent right-sided thoracentesis on 03/22/2024 with left-sided thoracentesis today that was tolerated without complications -Differential diagnosis includes CHF exacerbation, side effect of trabecula, or progression of underlying lung cancer -Agree with sending cytology of pleural fluid from bilateral thoracentesis -Echocardiogram pending -Continue to hold capmatinib for now while inpatient #Stage IIIc non-small cell lung cancer -Diagnosed in June 2021 and 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 -Has been on capmatinib with disease control since then -Staging CT scans in 02/28/2024 had shown potential new nodules in the right lower lobe and right upper lobe with increasing right pleural effusion and new small left pleural effusion -Plan was for PET scan to be performed outpatient on 04/03/2024 -Follow-up cytology from pleural fluid and hold capmatinib as above #Neutrophilic leukocytosis and thrombocytosis -Noted on outpatient labs on 03/18/2024 for WBC was 16.7 (ANC 14.1) and platelets 421 -Neutrophilic leukocytosis could be secondary to cellulitis with thrombocytosis secondary to acute infection superimposed on iron deficiency -Continue to monitor #Iron deficiency anemia -Diagnosed outpatient and underwent Feraheme on 02/29/2024 and 03/07/2024 -Was scheduled for third dose of Feraheme, but was held due to ongoing cellulitis -Third dose could be administered outpatient Jackie Jennings MD
[2024-03-23 17:39] LABS: Glucose, BF Source Pleural Fluid; Glucose, Body Fluid 135 mg/dL; LDH, Body Fluid Source Pleural Fluid; T. Protein, Body Fluid Source Pleural Fluid; Total Protein, Body Fluid 1770 mg/dL
[2024-03-23 17:45] LABS: Glucose,Whole Blood 178 mg/dL (70-110)
[2024-03-23 19:51] VITALS: RESP 16
--- NOTE | 2024-03-23 20:07 | OP ---
OPERATIVE REPORT DATE OF SERVICE : OPERATIVE REPORT: Left-sided thoracentesis. PREOPERATIVE DIAGNOSIS: Left pleural effusion. POSTOPERATIVE DIAGNOSIS: Left pleural effusion. ANESTHESIA USED: 2 mL of 1% lidocaine. DESCRIPTION OF PROCEDURE: The patient was placed in the sitting upright position, the area below the left scapula was prepared in a sterile fashion and drapes were applied. The area was earlier marked by ultrasound, and the marking was at the 8th intercostal space and tip of the scapula. The area was locally anesthetized, then a 26-gauge needle inserted into the pleural space and fluid was localized with a needle. A small tiny incision was made, and then a standard thoracentesis catheter and needle used, advanced into the pleural space as soon as the fluid was obtained. The catheter was advanced over the needle and the needle was pulled out of the pleural space. Freely flowing fluid was removed, roughly 700 cc of light lipemic looking fluid was removed from the left pleural space. The procedure was well tolerated, no complication. Fluid was sent for different diagnostic studies. MMODL / IJN: [id number] /
[2024-03-23 20:31] LABS: Glucose,Whole Blood 272 mg/dL (70-110)
[2024-03-24 06:48] LABS: African American GFR (CKD) 71 (>60 ml/min/1.73 sqM); Non-African American GFR(CKD) 61 (>60 ml/min/1.73 sqM)
[2024-03-24 07:36] LABS: Glucose,Whole Blood 137 mg/dL (70-110)
[2024-03-24 07:54] LABS: Cholesterol,BF Source Pleural Fluid; Cholesterol,Body Fluid 14 mg/dL
[2024-03-24 12:24] LABS: Glucose,Whole Blood 246 mg/dL (70-110)
[2024-03-24 12:34] VITALS: BP 132/57; PULSE 66; TEMP 97.4
--- NOTE | 2024-03-24 13:44 | P.PN ---
Subjective Progress Note Date: 03/24/24 This is a very pleasant 83-year-old male patient with a known history of kidney disease, chronic obstructive pulmonary disease, adenocarcinoma of the lung diagnosed in June 2021 and is currently on Tabrecta. Previous history of recurrent bilateral pleural effusions however his last bilateral thoracentesis was back in September 2022. Negative for malignancy x 2. He had been doing well since that time until recently he had developed increasing shortness of breath and dyspnea on minimal exertion. He presented here to the emergency room for the same yesterday. Chest x-ray did show significant bilateral pleural effusions. White count 23.3. Hemoglobin 10.5. Platelets 671. INR 0.9. Sodium 133. Potassium 4.8. Bicarb 30. BUN 40. Creatinine 1.53. Glucose 174. proBNP 1500. Procalcitonin 0.08. Viral screen negative. He is seen today in consultation on the regular medical floor. He is currently sitting up in bed. Awake and alert in no acute distress. Maintaining O2 saturations in the 90s on 2 L/min per nasal cannula. He had been initiated on vancomycin and Zosyn. He did undergo a right sided thoracentesis today with Dr. Olivas. 1.5 L of cloudy, yellow, milky fluid returned. Fluid analysis and cytology are pending. The patient is seen today March 23, 2024 in follow-up on the regular medical floor. He is currently sitting up in bed. Awake and alert having breakfast. Denies any worsening shortness of breath. He is maintaining good O2 saturation in the mid 90s on room air. He is afebrile. Hemodynamically stable. He feels a bit better today compared to yesterday. He is status post right sided thoracentesis yesterday fluid analysis and cytology pending. He did undergo a left-sided thoracentesis today with 750 mL of cloudy, yellow milky fluid returned. Cytology pending. Creatinine 1.42. Glucose 223. Procalcitonin negative at 0.08. The patient is seen today March 24, 2024 in follow-up on the regular medical floor. He is currently resting comfortably in bed. Awake and alert in no acute distress. Maintaining O2 saturations in the 90s on 2 L/min per nasal cannula. He is afebrile. Hemodynamically stable. No IV fluids. His follow-up chest x-ray revealed no evidence of pneumothorax. Small residual effusions. Cytology is pending. Pleural fluid analysis was transudate with a total protein of 1.7 and LDH of 87. Creatinine 1.10. Glucose 246. Echocardiogram is pending. Objective - Vital Signs Vital signs: Vital Signs Temp 97.4 F L 03/24/24 11:41 Pulse 66 03/24/24 11:41 Resp 16 03/24/24 11:41 BP 132/57 03/24/24 11:41 Pulse Ox 99 03/24/24 11:41 FiO2 Intake & Output 03/23/24 03/24/24 03/24/24 18:59 06:59 18:59 Output Total 500 700 300 Balance -500 -700 -300 Output: Urine 500 700 300 Other: Voiding Method Toilet Toilet Urinal Urinal - Exam GENERAL EXAM: Alert, pleasant 83-year-old male, resting comfortably in bed, on 2 L nasal cannula, in no apparent distress. HEAD: Normocephalic. EYES: Normal reaction of pupils, equal size. NOSE: Clear with pink turbinates. THROAT: No erythema or exudates. NECK: No masses, no JVD. CHEST: No chest wall deformity. LUNGS: Equal air entry with crackles and dullness of the bilateral bases. CVS: S1 and S2 normal with no audible murmur, regular rhythm. ABDOMEN: No hepatosplenomegaly, normal bowel sounds, no guarding or rigidity. SPINE: No scoliosis or deformity SKIN: No rashes CENTRAL NERVOUS SYSTEM: No focal deficits, tone is normal in all 4 extremities. EXTREMITIES: There is no peripheral edema. No clubbing, no cyanosis. Per ipheral pulses are intact. - Labs CBC & Chem 7: 03/21/24 13:49 03/24/24 05:34 Labs: Abnormal Lab Results - Last 24 Hours (Table) 03/23/24 03/23/24 03/24/24 Range/Units 17:42 20:29 07:35 POC Glucose (mg/dL) 178 H 272 H 137 H (70-110) mg/dL 03/24/24 Range/Units 12:19 POC Glucose (mg/dL) 246 H (70-110) mg/dL Microbiology - Last 24 Hours (Table) 03/21/24 18:30 Blood Culture - Preliminary Blood 03/22/24 09:30 Gram Stain - Preliminary Pleural Fluid Body Fluid Culture - Preliminary 03/22/24 08:47 Nasal Screen MRSA/MSSA - Final Nasal Swab Assessment and Plan Assessment: Acute hypoxic respiratory failure secondary to bilateral pleural effusions. Status post right sided thoracentesis March 22, 2024 with 1.5 L of cloudy, yellow, milky fluid returned. Fluid analysis and cytology pending. Left sided thoracentesis performed March 23, 2024 with 750 mL of cloudy yellow milky fluid returned. Cytology pending History of adenocarcinoma of the lung, diagnosed in June 2021, currently on Tabrecta History of previous bilateral pleural effusions s/p thoracentesis x 2 back in September 2022. Cytology negative for malignancy History of prostate source status post surgery Diabetes mellitus Hypertension Hyperlipidemia Former chronic tobacco dependence Plan: The patient was seen and evaluated Chest x-ray, labs and medications reviewed Status post right sided thoracentesis 03/22/2024 Status post left-sided thoracentesis 03/23/2024 Fluid analysis transudate, cytology pending Echocardiogram is pending Follow-up in our office in 1 week post discharge 50 minutes was spent with this patient including the interview, examination, the review of pertinent labs, imaging, medications and other consultants notes. The diagnosis, treatment plan and prognosis were discussed with the patient. I also spoke with the patient's nurse involved with his care. Dictation was produced using [email or web address] dictation software. Please excuse any grammatical, word or spelling errors.
--- NOTE | 2024-03-24 14:43 | P.PN ---
Subjective Progress Note Date: 03/24/24 No acute events overnight. Reporting he is feeling improved. Cellulitis RLE also improving. ECHO pending Objective - Vital Signs Vital signs: Vital Signs Temp 97.4 F L 03/24/24 11:41 Pulse 66 03/24/24 11:41 Resp 16 03/24/24 11:41 BP 132/57 03/24/24 11:41 Pulse Ox 99 03/24/24 11:41 FiO2 Intake & Output 03/23/24 03/24/24 03/24/24 18:59 06:59 18:59 Output Total 500 700 Balance -500 -700 Output: Urine 500 700 Other: Voiding Method Toilet Toilet Urinal Urinal - Constitutional General appearance: Present: average body habitus, no acute distress - EENT Eyes: Present: anicteric sclerae, EOMI ENT: Present: hearing grossly normal - Respiratory Details: breathing is even and unlabored - Cardiovascular Details: skin warm and dry - Integumentary Integumentary: Absent: cyanotic, jaundiced - Musculoskeletal Musculoskeletal: Present: strength equal bilaterally - Psychiatric Psychiatric: Present: A&O x's 3 - Labs CBC & Chem 7: 03/21/24 13:49 03/24/24 05:34 Labs: Abnormal Lab Results - Last 24 Hours (Table) 03/23/24 03/23/24 03/24/24 Range/Units 17:42 20:29 07:35 POC Glucose (mg/dL) 178 H 272 H 137 H (70-110) mg/dL 03/24/24 Range/Units 12:19 POC Glucose (mg/dL) 246 H (70-110) mg/dL Microbiology - Last 24 Hours (Table) 03/21/24 18:30 Blood Culture - Preliminary Blood 03/22/24 09:30 Gram Stain - Preliminary Pleural Fluid Body Fluid Culture - Preliminary 03/22/24 08:47 Nasal Screen MRSA/MSSA - Final Nasal Swab Assessment and Plan (1) Dyspnea Current Visit: Yes Status: Acute Code(s): R06.00 - DYSPNEA, UNSPECIFIED SNOMED Code(s): 040578523 (2) Pleural effusion, bilateral Current Visit: Yes Status: Acute Code(s): J90 - PLEURAL EFFUSION, NOT ELSEWHERE CLASSIFIED SNOMED Code(s): 791458961 (3) Non-small cell carcinoma of lung, stage 3 Current Visit: Yes Status: Chronic Code(s): C34.90 - MALIGNANT NEOPLASM OF UNSP PART OF UNSP BRONCHUS OR LUNG SNOMED Code(s): 505909825 (4) Neutrophilic leukocytosis Current Visit: Yes Status: Acute Code(s): D72.828 - OTHER ELEVATED WHITE BLOOD CELL COUNT SNOMED Code(s): 425836029 (5) Thrombocytosis Current Visit: Yes Status: Acute Code(s): D75.839 - THROMBOCYTOSIS, UNSPECIFIED SNOMED Code(s): 7823951 Plan: #Bilateral pleural effusions -Presented with increased dyspnea -Chest x-ray knowing cardiomegaly with pulmonary edema and chest ultrasound revealing large bilateral pleural effusions -Underwent right-sided thoracentesis on 03/22/2024 with left-sided thoracentesis today that was tolerated without complications -Differential diagnosis includes CHF exacerbation, side effect of trabecula, or progression of underlying lung cancer -Agree with sending cytology of pleural fluid from bilateral thoracentesis, cytology pending -Echocardiogram pending -Continue to hold capmatinib for now while inpatient #Stage IIIc non-small cell lung cancer -Diagnosed in June 2021 and 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 Will schedule clinic f/u in 2 weeks to review cytology and PET CT, and possible changes to regimen pending workup #Neutrophilic leukocytosis and thrombocytosis -Noted on outpatient labs on 03/18/2024 for WBC was 16.7 (ANC 14.1) and platelets 421 -Neutrophilic leukocytosis could be secondary to cellulitis with thrombocytosis secondary to acute infection superimposed on iron deficiency -Continue to monitor #Iron deficiency anemia -Diagnosed outpatient and underwent Feraheme on 02/29/2024 and 03/07/2024 -Was scheduled for third dose of Feraheme, but was held due to ongoing cellulitis -Third dose could be administered outpatient Doctor attests: I performed a history and physical examination of this patient, developed impression and plan of care. Discussed with dictator. I agree with dictators note, documented as a scribe.
--- NOTE | 2024-03-24 14:50 | CA ---
Transthoracic Echo Report Name: Peña Lakhani Age: 83 Gender: M : 1940 Exam Date: 03/24/2024 10:13 Exam Location: [place] [facility] Ht (in): 68 Wt (lb): 167 Ordering Physician: Jackie Jennings MD Attending/Referring Phys: [employer] Manager Audrey Ferreira RDCS Procedure CPT: Indications: Bilateral pleural effusions with cardiomegaly Cardiac Hx: Technical Quality: Fair Contrast 1: Total Dose (mL): Contrast 2: Total Dose (mL): MEASUREMENTS (Male / Female) Normal Values 2D ECHO LV Diastolic Diameter PLAX 4.2 cm 4.2 - 5.9 / 3.9 - 5.3 cm LV Systolic Diameter PLAX 2.9 cm IVS Diastolic Thickness 1.1 cm 0.6 - 1.0 / 0.6 - 0.9 cm LVPW Diastolic Thickness 1.2 cm 0.6 - 1.0 / 0.6 - 0.9 cm LV Relative Wall Thickness 0.5 LVOT Diameter 1.8 cm LV Diastolic Volume MOD BP 78.9 cm??? 67 - 155 / 56 - 104 cm??? LV Systolic Volume MOD BP 32.3 cm??? 22 - 58 / 19 - 49 cm??? LV Ejection Fraction MOD BP 59.1 % >= 55 % LV Cardiac Index MOD BP 1851.3 cm???/min???m??? LV Diastolic Volume MOD 4C 87.8 cm??? LV Systolic Volume MOD 4C 32.7 cm??? LV Ejection Fraction MOD 4C 62.8 % LV Cardiac Index MOD 4C 2185.8 cm???/min???m??? LV Diastolic Length 4C 8.3 cm LV Systolic Length 4C 7.5 cm LV Diastolic Volume MOD 2C 65.6 cm??? LV Systolic Volume MOD 2C 28.1 cm??? LV Ejection Fraction MOD 2C 57.2 % LV Cardiac Index MOD 2C 1489.2 cm???/min???m??? LV Diastolic Length 2C 7.6 cm LV Systolic Length 2C 6.4 cm LA Volume 43.4 cm??? 18 - 58 / 22 - 52 cm??? LA Volume Index 22.6 cm???/m??? 16 - 28 cm???/m??? DOPPLER AV Peak Velocity 161.4 cm/s AV Peak Gradient 10.4 mmHg AV Mean Velocity 104.7 cm/s AV Mean Gradient 5.0 mmHg AV Velocity Time Integral 34.5 cm LVOT Peak Velocity 107.0 cm/s LVOT Peak Gradient 4.6 mmHg LVOT Velocity Time Integral 22.8 cm LVOT Stroke Volume 60.1 cm??? LVOT Stroke Volume Index 31.7 ml/m??? LVOT Cardiac Index 2382.9 cm???/min???m??? AV Area Cont Eq vti 1.7 cm??? AV Area Cont Eq pk 1.7 cm??? MV Peak Velocity 142.3 cm/s MV Peak Gradient 8.1 mmHg MV Mean Velocity 83.1 cm/s MV Mean Gradient 3.3 mmHg MV Velocity Time Integral 39.1 cm MV Area PHT 2.9 cm??? Mitral E Point Velocity 86.6 cm/s Mitral A Point Velocity 110.8 cm/s Mitral E to A Ratio 0.8 MV Deceleration Time 265.9 ms TR Peak Velocity 273.5 cm/s TR Peak Gradient 29.9 mmHg Right Atrial Pressure 10.0 mmHg Pulmonary Artery Systolic Pressu 39.9 mmHg Right Ventricular Systolic Press 39.9 mmHg PV Peak Velocity 103.1 cm/s PV Peak Gradient 4.3 mmHg FINDINGS Left Ventricle Left ventricular ejection fraction is estimated at 55-60 %. Left ventricular cavity size normal. Left ventricular wall thickness normal. No obvious regional wall motion abnormalities. Right Ventricle Normal right ventricular size and function. Mild pulmonary hypertension. Right Atrium Right atrium not well visualized. Left Atrium Normal left atrial size. Mitral Valve Mitral valve thickened. Mild mitral stenosis. Trace mitral regurgitation. Aortic Valve Trileaflet aortic valve. No aortic valve stenosis or regurgitation. Tricuspid Valve Structurally normal tricuspid valve. No tricuspid stenosis. Trace to mild tricuspid regurgitation. Pulmonic Valve Structurally normal pulmonic valve. No pulmonic stenosis. No pulmonic regurgitation. Pericardium Trace pericardial efffusion. Aorta Normal size aortic root and proximal ascending aorta. CONCLUSIONS Diagnosis: Congestive heart failure/shortness of breath dyspnea Hyperdynamic LV function ejection fraction greater than 60% Previewed by: Dr. Raheem Mcbride MD (Electronically Signed) Final Date: 24 March 2024 14:49
[2024-03-24 17:08] LABS: Glucose,Whole Blood 178 mg/dL (70-110)
--- NOTE | 2024-03-27 12:18 | CDI ---
Documentation Clarification Form Date: 03/27/2024 11:29:45 AM From: Mesha Adams RN, CCDS Email: [email or web address] Admit Date: 03/21/2024 06:35:00 PM Patient Name: Peña Lakhani Visit Number: [id number] Discharge Date: 03/24/2024 06:26:00 PM ATTENTION: The Clinical Documentation Specialists (CDI) and [facility] Coding Staff appreciate your assistance in clarifying documentation. Please respond to the clarification below the line at the bottom and electronically sign. The CDI & [facility] Coding staff will review the response and follow-up if needed. Please note: Queries are made part of the Legal Health Record. If you have any questions, please contact the author of this message via ITS. Doctor Teddy Hall The patient had BL pleural effusions. Additional clarification is requested. History/Risk Factors: CKD, COPD and adenocarcinoma of the lung diagnosed in June 2021 and is currently on Tabrecta. Previous history of recurrent bilateral pleural effusions however his last bilateral thoracentesis was back in September 2022. Negative for malignancy x 2. Presented with increasing shortness of breath and dyspnea on minimal exertion. Clinical Indicators: 03/21 CXR: Cardiomegaly, pulmonary vascular congestion and bilateral small pleural effusions with atelectasis. Correlate with BNP for congestive heart failure. 03/21 BNP: 1500 03/22 Chest U/S: Large bilateral pleural effusions marked for possible thoracentesis. 03/23 CXR: Resolution of left pleural effusion following left thoracentesis. Small but increasing right pleural effusion. 03/22 Oncology: "Bilateral pleural effusions. Chest x-ray knowing cardiomegaly with pulmonary edema and chest ultrasound revealing large bilateral pleural effusions. Differential diagnosis includes CHF exacerbation, side effect of Tabrecta, or progression of underlying lung cancer. Stage IIIc non-small cell lung cancer. Has been on Capmatinib with disease control since then. Given the elevated BNP, echocardiogram will be ordered." 03/23 IM: "Bilateral pleural effusion. Acute hypoxic respiratory failure. History of adenocarcinoma of the lung, diagnosed in June 2021, currently on Tabrecta." 03/24 Echo: EF 55-60%. Mild pulmonary hypertension 03/24 Pathology of left pleural fluid: No cytologically malignant cells identified. 03/24 Pathology of right pleural fluid: pending Treatment: s/p thoracentesis; Capmatinib held; IV Lasix 40mg x1 on 03/21 Can you please clarify the suspected etiology of the pleural effusion/effusions: [x ] Adenocarcinoma of the lung [ ] CHF, please specify type and acuity [ ] Side effect of Tabrecta [ ] Other, please specify [ ] Unable to determine MTDD
== END 2024-03-24 18:26 | disposition home or self-care (01) | DRG 180 ==
LOC: EC 12:51 → 5NMEDONC 18:35
PROVIDERS: ADMIT Family Medicine; ATTEND Family Medicine
PROC: 0W993ZZ Drainage of Right Pleural Cavity, Percutaneous Approach (ICD-10-PCS; 2024-03-22)
PROC: 0W993ZZ Drainage of Right Pleural Cavity, Percutaneous Approach (ICD-10-PCS; principal; 2024-03-23)
DX: C34.90 Malignant neoplasm of unspecified part of unspecified bronchus or lung (principal); J96.01 Acute respiratory failure with hypoxia; J90 Pleural effusion, not elsewhere classified; L03.115 Cellulitis of right lower limb; D72.828 Other elevated white blood cell count; D50.9 Iron deficiency anemia, unspecified; E11.9 Type 2 diabetes mellitus without complications; D75.839 Thrombocytosis, unspecified; J44.9 Chronic obstructive pulmonary disease, unspecified; I10 Essential (primary) hypertension; J98.11 Atelectasis; E78.5 Hyperlipidemia, unspecified; Z79.84 Long term (current) use of oral hypoglycemic drugs; Z79.899 Other long term (current) drug therapy; Z85.46 Personal history of malignant neoplasm of prostate; Z87.891 Personal history of nicotine dependence; Z87.01 Personal history of pneumonia (recurrent); I25.10 Atherosclerotic heart disease of native coronary artery without angina pectoris; H91.90 Unspecified hearing loss, unspecified ear
CPT/HCPCS: 36415; 71045; 71046; 76604; 80053; 82465; 82565; 82945; 83036; 83605; 83615; 83735; 83880; 84145; 84155; 84157; 84478; 84484; 85025; 85610; 85730; 87040; 87070; 87205; 87636; 88108; 88305; 88341; 88342; 89050; 93005; 93306; 94760; 96365; 96366; 96367; 96375; 99285

== ENCOUNTER → 2024-07-18 | Outpatient (CLI) | payer MEDICARE, BC ==
--- NOTE | 2024-07-20 12:45 | PE ---
EXAMINATION TYPE: PET CT fusion skull to thigh DATE OF EXAM: 07/18/2024 CLINICAL INDICATION:Male, 83 years old with history of C34.11 Lung ca; TECHNIQUE: Following the intravenous administration of 8.43 mCi of F-18 FDG, whole body images are performed from the skull base to the midthigh. Images are reviewed on the computer in the coronal, a xial, and sagittal planes. Reconstructed rotating images are created on independent workstation and reviewed on the computer. A non-contrast CT is performed in conjunction with the PET scan. Glucose level 113 mg/dL. Automated exposure control for dose reduction was used. COMPARISON: CT 02/28/2024, 10/26/2023, 08/27/2022, PET/CT 04/03/2024, 09/30/2022, 05/05/2022, 01/13/2022, , 07/08/2021, MRI: 03/03/2024, 07/15/2021 FINDINGS: Mediastinal SUV mean is 2.5. Hepatic parenchyma SUV mean is 3.2. SKULL BASE AND NECK: No suspicious radiotracer activity. CHEST, MEDIASTINUM, AND HILAR REGION: Increasing size of right mid lung 1.8 cm solid pulmonary nodule with FDG activity. Demonstrates a max imum SUV of 6.1, previously 3.6. Additional focal nodular opacity within the right upper lung measuring up to 1.4 cm with a max SUV of 3.0, previously 1.7. ABDOMEN AND PELVIS: No suspicious radiotracer activity. MUSCULOSKELETAL STRUCTURES: No suspicious radiotracer activity. OTHER CT: Bilateral aphakia with scleral calcification. Bilateral carotid bulb calcifications. Modera te atherosclerotic calcification of the aorta and its branches. Aortic valvular calcifications. Small pericardial effusion. Large bilateral pleural effusions with right greater than left. Associated com plete atelectasis of the right lower lobe and right middle lobe. Partial atelectasis of the left lowe r lobe. Couple calcified granulomas within the right lung. Mild biapical pleural-parenchymal scarring . Mild right upper lobe paraseptal emphysematous changes. Large bilateral gynecomastia. Moderate pepe nary arterial calcifications. Gallbladder is surgically absent. Trace perihepatic ascites. Small amou nt ascites within the pelvis. Periampullary duodenal diverticulum. Diffuse anasarca. Right renal infe rior pole 2.4 cm simple cyst. No follow-up recommended. Sigmoid diverticulosis without evidence for a cute diverticulitis. Suspected prostatectomy again. IMPRESSION: 1. Increasing size and FDG activity within the right midlung pulmonary nodule concerning for recurre nt lung cancer. Additional focal nodular opacity within the right upper lung which may represent meta static disease versus infectious/inflammatory process. Consider follow-up CT chest in 3 months. 2. Large bilateral pleural effusions with right greater than left redemonstrated. [facility], , 07/20/2024 12:43 PM
== END | disposition home or self-care (01) ==
LOC: RADPETMAIN 09:01
PROVIDERS: ATTEND Internal Medicine Hematology & Oncology
DX: C34.11 Malignant neoplasm of upper lobe, right bronchus or lung (principal); R91.8 Other nonspecific abnormal finding of lung field; J90 Pleural effusion, not elsewhere classified
CPT/HCPCS: 78815; A9552

== ENCOUNTER → 2024-07-18 | Outpatient (CLI) | payer MEDICARE, BC ==
[2024-07-18 15:37] LABS: BUN/Creat Ratio 14.77 Ratio (12.00-20.00); Blood Urea Nitrogen 19.2 mg/dL (9.0-27.0); Calcium 8.3 mg/dL (8.7-10.3); Chloride 99 mmol/L (96-109); Glucose 127 mg/dL (70-110); Potassium 4.8 mmol/L (3.5-5.5); Sodium 135 mmol/L (135-145)
== END | disposition home or self-care (01) ==
LOC: LABWHC1 10:38
PROVIDERS: ATTEND Internal Medicine Nephrology
DX: N18.31 Chronic kidney disease, stage 3a (principal)
CPT/HCPCS: 36415; 80048

== ENCOUNTER → 2024-08-05 | Outpatient (CLI) | payer MEDICARE, BC ==
[2024-08-06 00:46] LABS: Cryptosporidium Antigen Negative (Negative)
== END | disposition home or self-care (01) ==
LOC: LABWHC1 11:29
PROVIDERS: ATTEND Family Medicine
DX: R19.7 Diarrhea, unspecified (principal)
CPT/HCPCS: 87328; 87329

== ENCOUNTER 2024-08-07 13:22 | Day surgery (SDC) | payer MEDICARE, BC ==
[2024-08-06 11:19] VITALS: BMI 22.6
[~2024-08-07 13:22] MED LIST changes: -ALBUTEROL NEB (CONC) 2.5 MG/0.5 ML INHALATION ONE; +LACTATED RINGERS 1,000 ML IV SCH; -LIDOCAINE 2% (PF) 20 MG/ML 5 ML VIAL INHALATION ONE; -LIDOCAINE VISCOUS 300 MG/15 ML CUP MUCOUS MEM ONE; -SODIUM CHLORIDE 0.9% 1,000 ML IV SCH
[2024-08-07 13:52] VITALS: TEMP 97.6
[2024-08-07 13:56] LABS: Glucose,Whole Blood 104 mg/dL (70-110)
[2024-08-07 14:29] VITALS: RESP 18
[2024-08-07 14:50] VITALS: BP 152/60; PULSE 76
--- NOTE | 2024-08-07 15:07 | XR ---
EXAMINATION TYPE: XR chest 1V portable DATE OF EXAM: 08/07/2024 2:26 PM COMPARISON: 05/09/2024 CLINICAL INDICATION: Male, 83 years old with history of THORACENESIS TECHNIQUE: XR chest 1V portable view(s) obtained. FINDINGS: The heart size is normal. The pulmonary vasculature is normal. There is a loculated right pneumothorax at the costophrenic angle. Referring physician is aware of th e finding. Right lower lobe infiltrate is present. Small effusions are likely present. IMPRESSION: 1. Loculated right costophrenic angle pneumothorax. [facility], , 08/07/2024 3:04 PM
--- NOTE | 2024-08-07 23:58 | P.PCN ---
Date of Procedure: 08/07/24 Preoperative Diagnosis: Pleural effusion, right Postoperative Diagnosis: Pleural effusion, right Procedure(s) Performed: Thoracentesis, right Anesthesia: local Surgeon: Isabell Morataya Estimated Blood Loss (ml): 0 Pathology: other Condition: stable Disposition: same day Operative Findings: A time out was performed and the chest x-ray was reviewed, the appropriate side was confirmed and marked. My hands were washed immediately prior to the procedure. I wore a surgical cap, mask with protective eyewear, sterile gown and sterile gloves throughout the procedure. The patient was prepped and draped in a sterile manner using chlorhexidine scrub after the appropriate level was pe rcussed and confirmed by ultrasound. 1% lidocaine was used to anesthesize the skin, subcutaneous tissue, superior aspect of the rib periosteum and parietal pleura. A finder needle was then introduced over the superior aspect of the rib to locate the pleural fluid; 2colored fluid was aspirated at a depth of approximately 2 cm. A 10-blade scalpel was used to flako the skin at the insertion site. The [id number] needle was then introduced through the skin incision into the pleural space using negative aspiration pressure and the red colometric indicator to confirm appropriate positioning of the needle. The thoracentesis catheter was then threaded without difficulty. 900 ml of turbid colored fluid was removed without difficulty. The catheter was then removed. No immediate complications were noted during the procedure. A post-procedure chest x-ray is pending at the time of this note. The fluid will be sent for studies. Estimated blood loss is 0cc Chest x-ray postop showed a loculated pneumothorax in the right lung base.
[2024-08-08 03:29] LABS: Glucose, BF Source Thoracentesis Fluid; Glucose, Body Fluid 94 mg/dL; LDH, Body Fluid Source Thoracentesis Fluid; T. Protein, Body Fluid Source Thoracentesis Fluid; Total Protein, Body Fluid 2320 mg/dL
== END 2024-08-07 15:07 | disposition home or self-care (01) ==
LOC: ORWHC2ENDO 13:22
PROVIDERS: ATTEND Internal Medicine Critical Care Medicine
DX: C34.90 Malignant neoplasm of unspecified part of unspecified bronchus or lung (principal); J96.01 Acute respiratory failure with hypoxia; J44.9 Chronic obstructive pulmonary disease, unspecified; I89.0 Lymphedema, not elsewhere classified; N18.30 Chronic kidney disease, stage 3 unspecified; I12.9 Hypertensive chronic kidney disease with stage 1 through stage 4 chronic kidney disease, or unspecified chronic kidney disease; E11.9 Type 2 diabetes mellitus without complications; E78.5 Hyperlipidemia, unspecified; D50.9 Iron deficiency anemia, unspecified; Z79.82 Long term (current) use of aspirin; Z79.899 Other long term (current) drug therapy
CPT/HCPCS: 32555; 71045; 82945; 83615; 84157

== ENCOUNTER 2024-08-27 11:53 | Day surgery (SDC) | payer MEDICARE, BC ==
[2024-08-26 12:01] VITALS: BMI 22.6
[2024-08-27 12:52] LABS: Glucose,Whole Blood 147 mg/dL (70-110)
[2024-08-27 12:55] VITALS: TEMP 97.5
[2024-08-27 13:46] VITALS: BP 112/48; PULSE 64; RESP 20
--- NOTE | 2024-08-27 13:51 | XR ---
EXAMINATION TYPE: XR chest 1V portable DATE OF EXAM: 08/27/2024 1:32 PM COMPARISON: 08/07/2024 CLINICAL INDICATION: Male, 83 years old with history of S/P THORACENTESIS, , FINDINGS: Residual moderate right pleural effusion. The amount of effusion is greater than was present on 2024. Unable to exclude some areas of loculated pleural air at the mid and lower lung. Heart remains mildly enlarged. Mild hyperinflation. IMPRESSION: COPD with moderate right pleural effusion. The amount of pleural fluid is greater than compared to despite the provided history of thoracentesis now. Unable to exclude areas of loculated pleur al air at the mid and lower lungs. Background COPD. [facility], , 08/27/2024 1:49 PM
--- NOTE | 2024-08-27 15:56 | P.PCN ---
Date of Procedure: 08/27/24 Preoperative Diagnosis: Pleural effusion, left Postoperative Diagnosis: Cloudy white pleural effusion, rule out chylothorax Procedure(s) Performed: Thoracentesis, left Anesthesia: local Surgeon: Isabell Morataya Estimated Blood Loss (ml): 0 Pathology: other Condition: stable Disposition: same day Operative Findings: A time out was performed and the chest x-ray was reviewed, the appropriate side was confirmed and marked. My hands were washed immediately prior to the procedure. I wore a surgical cap, mask with protective eyewear, sterile gown and sterile gloves throughout the procedure. The patient was prepped and draped in a sterile manner using chlorhexidine scrub after the appropriate level was percussed and confirmed by ultrasound. 1% lidocaine was used to anesthesize the skin, subcutaneous tissue, superior aspect of the rib periosteum and parietal pleura. A finder needle was then introduced over the superior aspect of the rib to locate the pleural fluid; 2colored fluid was aspirated at a depth of approximately 2 cm. A 10-blade scalpel was used to flako the skin at the insertion site. The [id number] needle was then introduced through the skin incision into the pleural space using negative aspiration pressure and the red colometric indicator to confirm appropriate positioning of the needle. The thoracentesis catheter was then threaded without difficulty. 1500 cc of cloudy, creamy white-beige fluid was removed without difficulty. The catheter was then removed. No immediate complications were noted during the procedure. A post- procedure chest x-ray is pending at the time of this note. The fluid will - be sent for studies. Estimated blood loss is 0cc. Increased suspicion for chylothorax. Chest x-ray shows no evidence of any pneumothorax postop.
[2024-08-27 20:19] LABS: Cholesterol,BF Source Pleural Fluid; Cholesterol,Body Fluid 36 mg/dL; Glucose, BF Source Pleural Fluid; Glucose, Body Fluid 162 mg/dL; LDH, Body Fluid Source Pleural Fluid; T. Protein, Body Fluid Source Pleural Fluid; Total Protein, Body Fluid 2260 mg/dL
[2024-08-27 23:50] LABS: Appearance,BF Turbid (Clear)
== END 2024-08-27 14:10 | disposition home or self-care (01) ==
LOC: ORWHC2ENDO 11:53
PROVIDERS: ATTEND Internal Medicine Critical Care Medicine
DX: C34.90 Malignant neoplasm of unspecified part of unspecified bronchus or lung (principal); J90 Pleural effusion, not elsewhere classified; J96.01 Acute respiratory failure with hypoxia; J44.9 Chronic obstructive pulmonary disease, unspecified; I89.0 Lymphedema, not elsewhere classified; N18.30 Chronic kidney disease, stage 3 unspecified; E11.9 Type 2 diabetes mellitus without complications; I10 Essential (primary) hypertension; E78.5 Hyperlipidemia, unspecified; D50.9 Iron deficiency anemia, unspecified; M25.551 Pain in right hip; Z79.82 Long term (current) use of aspirin; Z79.02 Long term (current) use of antithrombotics/antiplatelets; Z79.899 Other long term (current) drug therapy
CPT/HCPCS: 32555; 71045; 82465; 82945; 83615; 84157; 87070; 87205; 89050